=== PATIENT | female | born 1970 | race Caucasian/White ===

== ENCOUNTER 2020-04-05 15:07 | Outpatient (CLI) | payer BC, SELFPAY ==
--- NOTE | ~2020-04-05 | MM_ITS ---
EXAMINATION: MM screening [facility] BI w earl HISTORY: Screening mammogram TECHNIQUE: Craniocaudal and mediolateral oblique 3-D tomosynthesis images were obtained and synthetic 2-D images were generated. CAD analysis was submitted and interpreted. COMPARISON: Comparison to multiple prior studies sequentially, with oldest reviewed study dated 05/15. BREAST PARENCHYMAL COMPOSITION: There are scattered areas of fibroglandular density. FINDINGS: There is no evidence of suspicious mass, calcification, or architectural distortion to sugg est malignancy in either breast. There has been no suspicious interval change. IMPRESSION: 1. No mammographic evidence of malignancy. 2. Recommend routine screening mammography in one year. BI-RADS Category 1: Negative Reviewed, dictated and finalized at location A.
== END 2020-04-05 15:08 | disposition home or self-care (01) ==
LOC: ANHIMG 15:12
PROVIDERS: PCP Family Medicine; Visit Provider Obstetrics & Gynecology
DX: Z12.31 Encounter for screening mammogram for malignant neoplasm of breast (principal)
CPT/HCPCS: 77063; 77067

== ENCOUNTER → 2020-06-22 15:44 | Outpatient (REF) | payer BC, SELFPAY | LOC: ANHLAB 15:44 | PROVIDERS: PCP Family Medicine; Visit Provider Nurse Practitioner | DX: L72.11 Pilar cyst (principal) | CPT/HCPCS: 88304 ==

== ENCOUNTER 2021-05-03 17:37 | Outpatient (CLI) | payer BC, SELFPAY ==
--- NOTE | ~2021-05-03 | MM_ITS ---
EXAMINATION: MM screening [facility] BI w earl HISTORY: Screening mammogram TECHNIQUE: Craniocaudal and mediolateral oblique 3-D tomosynthesis images were obtained and synthetic 2-D images were generated. CAD analysis was submitted and interpreted. COMPARISON: 04/05/2020, 06/29/2018, 09/05/2016 bilateral digital screening mammogram examinations BREAST PARENCHYMAL COMPOSITION: There are scattered areas of fibroglandular density. FINDINGS: Stable fibroglandular asymmetry. Occasional punctate benign calcifications. There is no robbie dence of suspicious mass, calcification, or architectural distortion to suggest malignancy in either breast. There has been no suspicious interval change. IMPRESSION: 1. No mammographic evidence of malignancy. 2. Recommend routine screening mammography in one year. BI-RADS Category 2: Benign finding(s). Reviewed, dictated and finalized at location A.
== END 2021-05-03 17:38 | disposition home or self-care (01) ==
PROVIDERS: PCP Family Medicine; Visit Provider Obstetrics & Gynecology
DX: Z12.31 Encounter for screening mammogram for malignant neoplasm of breast (principal)
CPT/HCPCS: 77063; 77067

== ENCOUNTER → 2021-06-19 16:51 | Outpatient (REF) | payer BC, SELFPAY | LOC: ANHLAB 16:51 | PROVIDERS: PCP Family Medicine; Visit Provider Nurse Practitioner | DX: D49.2 Neoplasm of unspecified behavior of bone, soft tissue, and skin (principal) | CPT/HCPCS: 88305 ==

== ENCOUNTER 2021-10-02 10:27 | Outpatient (CLI) | payer BC, SELFPAY ==
[2021-10-02 10:44] LABS: Basophils Absolute Auto 0.1 K/mm3 (0.0-0.1); Basophils Percent Auto 1.1 % (0.2-1.2); Eosinophils Absolute Auto 0.2 K/mm3 (0-0.3); Eosinophils Percent Auto 2.2 % (0-4.4); Hematocrit 44.9 % (37.0-47.0); Hemoglobin 14.4 g/dL (12.0-15.0); Immature Granulocyte Absolute 0.02 K/mm3 (0.00-0.031); Immature Granulocyte Percent A 0.2 % (0-0.5); Lymphocytes Absolute Auto 2.29 K/mm3 (0.9-3.2); Lymphocytes Percent Auto 26.8 % (18.3-44.2); Mean Corpuscular HGB Conc 32.1 g/dl (32-36); Mean Corpuscular Hemoglobin 30.6 pg (26-34); Mean Corpuscular Volume 95.5 fl (80-100); Mean Platelet Volume 9.8 fl (7.4-10.4); Monocytes Absolute Auto 0.8 K/mm3 (0.1-0.6); Monocytes Percent Auto 8.8 % (2.6-8.5); Neutrophils Absolute Auto 5.2 K/mm3 (1.3-6.7); Neutrophils Percent Auto 60.9 % (45.5-73.1); Platelet Count Result 255 k/mm3 (150-375); Red Cell Distribution Width 12.7 % (11.5-14.5); White Blood Count 8.5 K/mm3 (4.5-10.0)
[2021-10-02 10:48] LABS: Add Urine Microscopic? NO; Appearance Urine Clear (Clear); Bilirubin Urine Negative (Negative); Blood Urine Negative (Negative); Color Urine Yellow (Yellow); Glucose Urine UA Negative (Negative); Ketones Urine Negative (Negative); Leukocyte Esterase Ur Negative LEU/UL (NEGATIVE); Nitrate Urine Negative (Negative); Protein Urine Negative (Negative); Specific Grav Ur 1.014 (1.001-1.035); Urobilinogen Urine Negative mg/dL (<2.0)
[2021-10-02 11:01] LABS: Alanine Aminotransferase 24 U/L (4-35); Alkaline Phosphatase 84 U/L (38-126); Amylase 67 U/L (30-110); Anion Gap 7 mmol/L (8-16); Aspartate Amino Transferase 38 U/L (14-36); Bilirubin,Total 0.7 mg/dL (0.2-1.3); Blood Urea Nitrogen 7 mg/dL (7-17); Calcium 8.8 mg/dL (8.4-10.2); Carbon Dioxide 25 mmol/L (22-30); Chloride 102 mmol/L (98-107); Estimated Glomerular Filt Rate > 60; Glucose 100 mg/dL (65-110); Lipase 84 U/L (23-300); Potassium 4.4 mmol/L (3.4-5.0); Sodium 134 mmol/L (137-145)
== END 2021-10-02 10:28 | disposition home or self-care (01) ==
PROVIDERS: PCP Family Medicine; Visit Provider Physician Assistant
DX: R10.9 Unspecified abdominal pain (principal); I10 Essential (primary) hypertension; K21.9 Gastro-esophageal reflux disease without esophagitis
CPT/HCPCS: 36415; 80053; 81003; 82150; 83690; 85025; 87086

== ENCOUNTER 2022-05-09 16:17 | Outpatient (CLI) | payer BC, SELFPAY ==
--- NOTE | ~2022-05-09 | US_ITS ---
EXAMINATION: US thyroid DATE: 05/09/2022 16:58 INDICATION: Nontoxic goiter TECHNIQUE: Multiple ultrasound images of the thyroid were obtained. COMPARISON: None. FINDINGS: The right thyroid lobe measures 5.5 x 1.5 x 1.4 cm. The left thyroid lobe measures 5.6 x 1.4 x 1.9 c m. 4.1 cm wider than tall solid hypoechoic nodule without echogenic foci and with smooth margins at the inferior left thyroid (TI-RADS 4, moderately suspicious , FNA if >=1.5 cm, annual followup is >=1 cm). 3.1 cm solid heterogeneous isoechoic nodule with smooth margins and with internal coarse shadow ing calcifications at the junction of the left thyroid lobe and isthmus, also TI RADS 4. There are m ultiple additional scattered subcentimeter hypoechoic and anechoic nodules in both the left and right thyroid lobes. IMPRESSION: 1. Multinodular goiter including a 3.1 cm TI RADS 4 nodule at the junction of the left thyroid lobe a nd isthmus and a second 4.1 cm TI RADS 4 nodule at the inferior left thyroid lobe nodules meeting cri teria for biopsy. Recommend ultrasound-guided biopsy of at least the larger nodule at the inferior le ft thyroid lobe versus biopsy of both of the larger nodules. Reviewed, dictated and finalized at location A. IMPRESSION: 1. Multinodular goiter including a 3.1 cm TI RADS 4 nodule at the junction of t he left thyroid lobe and isthmus and a second 4.1 cm TI RADS 4 nodule at the in ferior left thyroid lobe nodules meeting criteria for biopsy. Recommend ultraso und-guided biopsy of at least the larger nodule at the inferior left thyroid lo be versus biopsy of both of the larger nodules.
== END 2022-05-09 16:18 | disposition home or self-care (01) ==
PROVIDERS: PCP Family Medicine; Visit Provider Obstetrics & Gynecology
DX: E04.2 Nontoxic multinodular goiter (principal)
CPT/HCPCS: 76536

== ENCOUNTER 2022-06-04 10:19 | Outpatient (CLI) | payer BC, SELFPAY ==
--- NOTE | 2022-06-04 10:26 | EST_ITS ---
Patient Info Name: Maral Bernabe Age: 51 years : 1970 Gender: Female Ht: 63 in Wt: 180 lbs BSA: 1.94 m2 Exam Date: 06/04/2022 10:46 AM Exam Location: [facility] Stress Patient Status: Outpatient Admit Date: 06/04/2022 Staff Ordering Physician: Martha Chacon PA-C Attending Provider: Martha Chacon PA-C Exercise Technologist: Carmina Key RDCS Exercise Physician: Aj Hale DO Exam Type: CA stress test treadmill Study Info Indications R07.9 - Chest pain, unspecified A treadmill exercise stress test was performed. Summary 1. 1. Negative [place] exercise stress test for ischemic ST changes by ECG criteria. 2. 2. Good functional capacity, achieving 10 METs of workload. 3. 3. Appropriate HR response to exercise. 4. 4. Appropriate HR recovery at 1 minute post exercise. 5. 5. No imaging with stress testing. 6. 6. Patient informed of the above results. Protocol: [place] Stress ECG Details Stage: REST Duration (min): 1 min : 2 sec Speed (mph): 0.0 Grade (%): 0 HR (bpm): 62 SBP (mmHg): 118 DBP (mmHg): 66 METS: --- Stage: REST Duration (min): 6 min : 9 sec Speed (mph): 0.0 Grade (%): 0 HR (bpm): 58 SBP (mmHg): 118 DBP (mmHg): 66 METS: --- Stage: STAGE 1 Duration (min): 1 min : 0 sec Speed (mph): 1.7 Grade (%): 10 HR (bpm): 93 SBP (mmHg): 118 DBP (mmHg): 66 METS: --- Stage: STAGE 1 Duration (min): 2 min : 0 sec Speed (mph): 1.7 Grade (%): 10 HR (bpm): 102 SBP (mmHg): 118 DBP (mmHg): 66 METS: --- Stage: STAGE 1 Duration (min): 3 min : 0 sec Speed (mph): 1.7 Grade (%): 10 HR (bpm): 101 SBP (mmHg): 140 DBP (mmHg): 54 METS: --- Stage: STAGE 2 Duration (min): 1 min : 0 sec Speed (mph): 2.5 Grade (%): 12 HR (bpm): 109 SBP (mmHg): 140 DBP (mmHg): 54 METS: --- Stage: STAGE 2 Duration (min): 2 min : 0 sec Speed (mph): 2.5 Grade (%): 12 HR (bpm): 118 SBP (mmHg): 148 DBP (mmHg): 52 METS: --- Stage: STAGE 2 Duration (min): 3 min : 0 sec Speed (mph): 2.5 Grade (%): 12 HR (bpm): 120 SBP (mmHg): 148 DBP (mmHg): 52 METS: --- Stage: STAGE 3 Duration (min): 1 min : 0 sec Speed (mph): 3.4 Grade (%): 14 HR (bpm): 134 SBP (mmHg): 142 DBP (mmHg): 52 METS: --- Stage: STAGE 3 Duration (min): 2 min : 0 sec Speed (mph): 3.4 Grade (%): 14 HR (bpm): 146 SBP (mmHg): 142 DBP (mmHg): 52 METS: --- Stage: STAGE 3 Duration (min): 3 min : 0 sec Speed (mph): 3.4 Grade (%): 14 HR (bpm): 151 SBP (mmHg): 175 DBP (mmHg): 64 METS: --- Stage: RECOVERY Duration (min): 0 min : 59 sec Speed (mph): 0.0 Grade (%): 0 HR (bpm): 124 SBP (mmHg): 175 DBP (mmHg): 64 METS: --- Stage: RECOVERY Duration (min): 1 min : 59 sec Speed (mph)
== END 2022-06-04 10:20 | disposition home or self-care (01) ==
PROVIDERS: PCP Family Medicine; Visit Provider Physician Assistant
DX: R07.89 Other chest pain (principal)
CPT/HCPCS: 93017

== ENCOUNTER 2022-06-12 09:01 | Outpatient (CLI) | payer BC, SELFPAY ==
--- NOTE | ~2022-06-12 | US_ITS ---
EXAMINATION: US FNA w image guidance DATE: 06/12/2022 10:15 INDICATION: Thyroid nodule. TECHNIQUE: The procedure and its benefits and risks were discussed with the patient. Risks specifically discusse d included bleeding. The patient verbalized understanding of the risks and agreed to proceed. The nec k was prepped and draped in the usual sterile manner. 1% lidocaine was used for local anesthesia. 6 passes were made with a 25G needle into the lesion under ultrasound guidance. There were no immedia te complications. FINDINGS: Grayscale ultrasound images demonstrate needles advanced into a 3.1 cm nodule in thyroid isthmus for biopsy. This nodule was previously described as 2 nodules. IMPRESSION: 1. Ultrasound-guided fine needle aspiration of a thyroid nodule. Reviewed, dictated and finalized at location A.
== END 2022-06-12 09:02 | disposition home or self-care (01) ==
LOC: ANHIMG 09:07
PROVIDERS: PCP Family Medicine; Visit Provider Otolaryngology
DX: E04.1 Nontoxic single thyroid nodule (principal)
CPT/HCPCS: 10005; 88173; 88305

== ENCOUNTER 2022-06-26 14:05 | Outpatient (CLI) | payer BC, SELFPAY ==
--- NOTE | ~2022-06-26 | MM_ITS ---
EXAMINATION: MM screening [facility] BI w earl HISTORY: Screening mammogram TECHNIQUE: Craniocaudal and mediolateral oblique 3-D tomosynthesis images were obtained and synthetic 2-D images were generated. CAD analysis was submitted and interpreted. COMPARISON: 05/03/2021, 04/05/2020 BREAST PARENCHYMAL COMPOSITION: There are scattered areas of fibroglandular density. FINDINGS: There is no suspicious mass, calcification, or architectural distortion to suggest malignan cy in either breast. There has been no suspicious interval change. IMPRESSION: 1. No mammographic evidence of malignancy. 2. Recommend routine screening mammography in one year. BI-RADS Category 1: Negative Reviewed, dictated and finalized at location A.
== END 2022-06-26 14:06 | disposition home or self-care (01) ==
PROVIDERS: PCP Family Medicine; Visit Provider Obstetrics & Gynecology
DX: Z12.31 Encounter for screening mammogram for malignant neoplasm of breast (principal)
CPT/HCPCS: 77063; 77067

== ENCOUNTER → 2022-11-19 07:56 | Outpatient (CLI) | payer BC, SELFPAY ==
--- NOTE | ~2022-11-19 | XR_ITS ---
XR shoulder RT min 2V DATE: 11/19/2022 08:08 INDICATION: Right shoulder pain TECHNIQUE: 4 views COMPARISON: None FINDINGS: Normal alignment at the acromioclavicular and glenohumeral joints. No fracture, dislocation , periosteal reaction or bone destruction or abnormal soft tissue calcification. IMPRESSION: Negative Reviewed, dictated and finalized at location A. [employer] IMPRESSION: Negative
== END ==
PROVIDERS: PCP Family Medicine; Visit Provider Physician Assistant
DX: M25.511 Pain in right shoulder (principal)
CPT/HCPCS: 73030

== ENCOUNTER 2023-01-23 09:30 | Outpatient (CLI) | payer BC, SELFPAY ==
--- NOTE | ~2023-01-23 | MR_ITS ---
MRI of the right shoulder Technique: Axial proton-density fat-sat images, coronal proton density fat-sat and T2 fat-sat images, and sagittal T1-weighted and T2 fat-sat images were acquired. Clinical History: Pain Findings: No significant degenerative change at the AC joint. Coracoclavicular, coracoacromial, and c oracohumeral ligaments are intact. There is mild infiltration of subcoracoid fat. Supraspinatus and infraspinatus tendons are intact, without partial or full-thickness tear. Subscapul victor hugo tendon is intact. There is minimal rotator cuff tendinosis. Tendon of the long head of the bicep s is intact. No labral tear identified. There is thickening and increased signal of the inferior glenohumeral ligament. No degenerative gonzalez e of the glenohumeral joint. No fluid distention of the subacromial/subdeltoid bursa. No muscle atrop hy or edema. Impression: Findings consistent with adhesive capsulitis. Minimal rotator cuff tendinosis. Reviewed, dictated and finalized at location . Impression: Findings consistent with adhesive capsulitis. Minimal rotator cuff tendinosis.
== END 2023-01-23 09:31 | disposition home or self-care (01) ==
PROVIDERS: PCP Family Medicine; Visit Provider Physician Assistant
DX: M25.511 Pain in right shoulder (principal)
CPT/HCPCS: 73221

== ENCOUNTER → 2023-06-02 08:29 | Outpatient (CLI) | payer BC, SELFPAY ==
--- NOTE | ~2023-06-02 | US_ITS ---
EXAMINATION: US thyroid DATE: 06/02/2023 08:44 INDICATION: Nontoxic multinodular goiter. TECHNIQUE: Multiple ultrasound images of the thyroid were obtained. COMPARISON: Ultrasound 05/09/2022, 06/12/2022 FINDINGS: The right thyroid lobe measures 5.3 x 1.9 x 1.6 cm. The left thyroid lobe measures 6.0 x 1.7 x 1.9 c m. There are multiple subcentimeter nodules in the thyroid. In the thyroid isthmus, there is a 3.4 c m solid, isoechoic wider than tall nodule with ill-defined margin without echogenic foci (TI-RADS TR3 ), stable from 06/12/22 when biopsy was benign. In the left thyroid lobe, there is a 9 mm, solid, hypoe choic, wider than tall nodule with ill-defined margin without echogenic foci (TI-RADS TR4). IMPRESSION: 1. Multinodular goiter, likely not clinically significant. No follow-up is needed. Reviewed, dictated and finalized at location E. IMPRESSION: 1. Multinodular goiter, likely not clinically significant. No follow-up is need ed.
== END ==
PROVIDERS: PCP Otolaryngology; Visit Provider Otolaryngology
DX: E04.2 Nontoxic multinodular goiter (principal)
CPT/HCPCS: 76536

== ENCOUNTER 2023-06-24 02:58 | Day surgery (SDC) | payer BC, SELFPAY ==
[2023-06-10 14:28] VITALS: BMI 32.0
[2023-06-24 09:18] VITALS: BP 138/72; PULSE 64; RESP 18; TEMP 36.2; O2SAT 100
[2023-06-24] MEDS: LACTATED RINGERS 1,000 ML 150 ML IV CONT (09:27)
--- NOTE | 2023-06-24 09:41 | WPDANESEPPF ---
Anes - Initial Pre Proc Eval Procedure: Operation Date: 06/24/23 10:30 Proposed Procedures p Screening Colonoscopy - Zhang Kc MD Date/Time: 06/24/23 09:41 Surgeon: Zhang Kc MD Pre Op Diagnosis: neoplasm screening Patient Data Age: 52 Gender: F Height: 1.6 m Weight: 83.2 kg Last Vital Signs Temp 97.2 F L 06/24/23 09:18 Pulse 64 06/24/23 09:18 Resp 18 06/24/23 09:18 BP 138/72 06/24/23 09:18 Pulse Ox 100 06/24/23 09:18 O2 Del Method Room Air 06/24/23 09:18 Allergies Allergy/AdvReac Type Severity Reaction Status Date / Time No Known Allergies Allergy Verified 06/24/23 09:16 Home Medications Medication Instructions Recorded Confirmed Type [id number]-[id number] 45 mg-folic cap PO 11/01/19 05/20/23 History acid 800 mcg-vit K 120 mcg capsule (Bariatric Multivitamins) calcium citrate 600 mg PO BID 06/13/20 06/10/23 History lactobacillus combination no.8 3 3,000 mmu cells PO DAILY 06/13/20 06/10/23 History billion cell capsule (Adult Probiotic) amlodipine 5 mg tablet 5 mg PO DAILY #90 tabs 05/01/22 06/10/23 Rx lisinopril 5 mg tablet 5 mg PO DAILY #90 tabs 05/01/22 06/10/23 Rx trazodone 100 mg tablet 100 mg PO QHS #90 tabs 05/01/22 06/10/23 Rx citalopram 40 mg tablet See Rx Instructions .Route 07/02/22 06/10/23 Rx .COMPLEX #90 tabs doxycycline hyclate 50 mg capsule 50 mg PO DAILY 05/20/23 06/10/23 History Estroven 1 tablet PO DAILY 06/10/23 06/10/23 History Patient hx anesthesia problems: none Family hx anesthesia problems: none Results Review: All pre-operative results and documents have been reviewed as part of the pre-operative evaluation. [facility], [facility] Past Medical History Medical History Adhesive capsulitis of right shoulder Anxiety Benign mole Depression Elective Enlarged thyroid gland Essential hypertension GERD (gastroesophageal reflux disease) Headache High cholesterol Libido, decreased Menopausal and female climacteric states Obesity (BMI 30-39.9) Pilar cyst PVCs (premature ventricular contractions) Right rotator cuff tendinitis Right shoulder pain Scarring Skin cancer screening Skin neoplasm Subcutaneous mass Surgical History Surgical History History of bariatric surgery gastric sleeve 2015 History of bilateral tubal ligation History of cholecystectomy History of endometrial ablation History of hernia surgery Hx of LASIK S/P gastric bypass Family History Family History Father Heart disease Hypertension Acute myocardial infarction Mother Lung cancer Sibling Diabetes mellitus Hypertension Other High cholesterol Social History Social History Social History: Smoking packs per day: 2 Smoking cigarettes per day: 40.0 Years smoked: 20 Smoking pack-years: 40.00 Smoking status: Former smoker Second hand tobacco smoke exposure: No Smoking end date: 10/06/06 Alcohol intake: never Substance use: never Substance use type: does not use Lack of Transportation: No Lack of Food: Never True Current Housing: I Have Housing Concerned About Future Housing: No Difficulty Paying Gas/Electric Bills: No Difficulty Paying for Meds: No Currently Unemployed: No Education: Associate Degree Difficulty w/ Childcare or Family Care: No Living arrangements: with family Occupation/Education: occupation Gender identity (if verbalized by the patient): Female Sexual Orientation (if Verbalized by the Patient): Straight or Heterosexual Spiritual care concerns: No Anes - Eval Final PreProcedure Day of Procedure 06/24/23 09:41 Patient weight: normal Heart: regular rate and rhythm Lungs: clear to auscultation Airway: Mallam
--- NOTE | 2023-06-24 10:07 | PM.HPGS ---
History of Present Illness History of Present Illness Consent: Risks, benefits, and alternatives have been discussed and questions answered. Patient agrees to proceed with procedure. Chief complaint: neoplasm screening Narrative: Maral Bernabe is a 52 year old female here for first screening colonoscopy Review of Systems Constitutional: Constitutional: Denies headache(s) and Denies weakness Eyes: Eyes: Denies blurry vision ENT: Reports Normal hearing present, Denies headache(s) and Denies neck pain Cardiovascular: Cardiovascular: Denies chest pain and Denies dyspnea Respiratory: Respiratory: Denies dyspnea Gastrointestinal: Gastrointestinal: Reports no additional gastrointestinal complaints Genitourinary: Genitourinary: Denies dysuria Musculoskeletal: Musculoskeletal: Denies neck pain Integumentary/Breasts: Skin/Breast: Denies dry skin Neurologic: Reports Normal hearing present, Denies headache(s) and Denies weakness Psychiatric: Psychiatric: Denies anxiety Endocrine: Endocrine: Denies change in body appearance Hematologic/Lymphatic: Hematologic/Lymphatic: Denies easy bleeding Allergic/Immunologic: Allergic/Immunologic: Denies urticaria PMF Past Medical History Medical History (Updated 06/24/23 @ 10:08 by Zhang Kc MD) Adhesive capsulitis of right shoulder Anxiety Benign mole Colon cancer screening Depression Elective Enlarged thyroid gland Essential hypertension GERD (gastroesophageal reflux disease) Headache High cholesterol Libido, decreased Menopausal and female climacteric states Obesity (BMI 30-39.9) Pilar cyst PVCs (premature ventricular contractions) Right rotator cuff tendinitis Right shoulder pain Scarring Skin cancer screening Skin neoplasm Subcutaneous mass Surgical History Surgical History History of bariatric surgery gastric sleeve 2014 History of bilateral tubal ligation History of cholecystectomy History of endometrial ablation History of hernia surgery Hx of LASIK S/P gastric bypass Family History Family History Father Heart disease Hypertension Acute myocardial infarction Mother Lung cancer Sibling Diabetes mellitus Hypertension Other High cholesterol Social History Social History Social History: Smoking packs per day: 2 Smoking cigarettes per day: 40.0 Years smoked: 20 Smoking pack-years: 40.00 Smoking status: Former smoker Second hand tobacco smoke exposure: No Smoking end date: 10/06/06 Alcohol intake: never Substance use: never Substance use type: does not use Lack of Transportation: No Lack of Food: Never True Current Housing: I Have Housing Concerned About Future Housing: No Difficulty Paying Gas/Electric Bills: No Difficulty Paying for Meds: No Currently Unemployed: No Education: Associate Degree Difficulty w/ Childcare or Family Care: No Living arrangements: with family Occupation/Education: occupation Gender identity (if verbalized by the patient): Female Sexual Orientation (if Verbalized by the Patient): Straight or Heterosexual Spiritual care concerns: No Meds Home Medications and Allergies Home Medications Medication Instructions Recorded Confirmed Type tdpszcnr-[id number]-[id number] 45 mg-folic cap PO 11/01/19 05/20/23 History acid 800 mcg-vit K 120 mcg capsule (Bariatric Multivitamins) calcium citrate 600 mg PO BID 06/13/20 06/10/23 History lactobacillus combination no.8 3 3,000 mmu cells PO DAILY 06/13/20 06/10/23 History billion cell capsule (Adult Probiotic) amlodipine 5 mg tablet 5 mg PO DAILY #90 tabs 05/01/22 06/10/23 Rx lisinopril 5 mg tablet 5 mg PO DAILY #90 tabs 05/01/22 06/10/23 Rx trazodone 100 mg tablet 100 mg PO QHS #90 tabs 05/01/22 06/10/23 Rx c
[2023-06-24 10:32] VITALS: BP 112/66; PULSE 68; RESP 21; O2SAT 100
[2023-06-24 10:42] VITALS: BP 120/73; PULSE 66; RESP 18; O2SAT 100
[2023-06-24 10:52] VITALS: BP 136/80; PULSE 60; RESP 15; O2SAT 100
== END 2023-06-24 11:03 | disposition home or self-care (01) ==
PROVIDERS: PCP Family Medicine; Visit Provider Internal Medicine Gastroenterology
PROC: 0DJD8ZZ Inspection of Lower Intestinal Tract, Via Natural or Artificial Opening Endoscopic (ICD-10-PCS; CPT 45378; principal; 2023-06-24 10:30)
DX: Z12.11 Encounter for screening for malignant neoplasm of colon (principal); K64.8 Other hemorrhoids; I10 Essential (primary) hypertension; E78.00 Pure hypercholesterolemia, unspecified; F41.9 Anxiety disorder, unspecified; F32.A Depression, unspecified; Z98.84 Bariatric surgery status; Z87.891 Personal history of nicotine dependence
CPT/HCPCS: 45378; J2704; J7120

== ENCOUNTER 2023-07-05 09:59 | Outpatient (CLI) | payer BC, SELFPAY ==
--- NOTE | ~2023-07-05 | CT_ITS ---
EXAMINATION:CT lung screening DATE: 07/05/2023 10:17 INDICATION: Tobacco use. Smoker who quit 13 years ago with 30 pack year history. TECHNIQUE: Computed tomography (CT) of the chest was performed without intravenous contrast. Automate d exposure control and iterative reconstruction technique were employed. The dose-length product (DLP ) was 76.91 mGy-cm. COMPARISON: None. FINDINGS: There is mild atelectasis bilaterally. No pleural effusion. There is a multinodular goiter extending into the superior mediastinum. The heart size is normal. No pericardial effusion. There are surgical changes of the stomach. There is a small sliding hiatal hernia. There is mild thoracic spon dylosis. IMPRESSION: 1. Lung-RADS category 1: Negative. Continue annual screening with noncontrast low-dose chest CT in 12 months. Reviewed, dictated and finalized at location E. IMPRESSION: 1. Lung-RADS category 1: Negative. Continue annual screening with noncontrast l ow-dose chest CT in 12 months.
== END 2023-07-05 10:00 | disposition home or self-care (01) ==
PROVIDERS: PCP Family Medicine; Visit Provider Physician Assistant
DX: Z12.2 Encounter for screening for malignant neoplasm of respiratory organs (principal); Z87.891 Personal history of nicotine dependence
CPT/HCPCS: 71271

== ENCOUNTER → 2023-09-02 15:55 | Outpatient (CLI) | payer BC, SELFPAY ==
--- NOTE | ~2023-09-02 | MM_ITS ---
EXAMINATION: MM screening [facility] BI w earl HISTORY: Screening mammogram TECHNIQUE: Craniocaudal and mediolateral oblique 3-D tomosynthesis images were obtained and synthetic 2-D images were generated. CAD analysis was submitted and interpreted. COMPARISON: 06/26/2022, 05/03/2021, 04/05/2020 bilateral screening mammogram examinations BREAST PARENCHYMAL COMPOSITION: There are scattered areas of fibroglandular density. FINDINGS: Stable fibroglandular asymmetry since 05/03/2021. There is no evidence of suspicious mass, c alcification, or architectural distortion to suggest malignancy in either breast. There has been no s uspicious interval change. IMPRESSION: 1. No mammographic evidence of malignancy. 2. Recommend routine screening mammography in one year. BI-RADS Category 2: Benign finding(s). Reviewed, dictated and finalized at location A. INE QUILT STUFFER
== END ==
PROVIDERS: PCP Family Medicine; Visit Provider Obstetrics & Gynecology
DX: Z12.31 Encounter for screening mammogram for malignant neoplasm of breast (principal)
CPT/HCPCS: 77063; 77067

== ENCOUNTER 2024-08-21 11:11 | Outpatient (CLI) | payer BC, SELFPAY ==
--- NOTE | ~2024-08-21 | US_ITS ---
EXAMINATION: US pelvic complete w TV DATE: 08/21/2024 11:37 INDICATION: R10.2 - Pelvic and perineal pain TECHNIQUE: Multiple transabdominal and endovaginal sonographic images of the pelvis were obtained. COMPARISON: None. FINDINGS: Uterus: 5.0 x 3.1 x 3.6 cm. Scattered uterine calcifications and nabothian cysts. Endometrial complex measures 3 mm. Right Ovary: Right ovary not visualized. No adnexal mass Left Ovary: 1.5 x 1.0 x 1.7 cm. Vascular flow is present. There is no free fluid in the pelvis. IMPRESSION: Right ovary not visualized. Otherwise unremarkable pelvic sonogram findings. Reviewed, dictated and finalized at location K. 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
== END 2024-08-21 11:12 | disposition home or self-care (01) ==
LOC: MICIMG 11:11
PROVIDERS: PCP Obstetrics & Gynecology; Visit Provider Obstetrics & Gynecology
DX: R10.2 Pelvic and perineal pain (principal)
CPT/HCPCS: 76830; 76856

== ENCOUNTER 2024-12-20 10:59 | Outpatient (CLI) | payer BC, SELFPAY ==
--- NOTE | ~2024-12-20 | DEXA_ITS ---
Bone Density Report Name: BELA BREWER Age: 54 Sex: Female Ethnicity: White Date of : 1970 Indication: postmenopausal; screening for osteoporosis; height loss; Referring Provider: ALVARO RAMOS Study: Bone densitometry was performed. Exam Date: December 20, 2024 Accession number: [id number] Bone Density: Region BMD T-score Z-score Classification AP Spine(L1-L4) 1.014 -0.3 0.8 Normal Femoral Neck (Left) 0.590 -2.3 -1.3 Osteopenia Total Hip (Left) 0.780 -1.3 -0.6 Osteopenia Femoral Neck (Right) 0.634 -1.9 -0.9 Osteopenia Total Hip (Right) 0.760 -1.5 -0.8 Osteopenia Total Hip Mean 0.770 -1.4 -0.7 Osteopenia World Health Organization criteria for BMD impression classify patients as: Normal (T-score at or above -1.0), Osteopenia (T-score between -1.0 and -2.5), or Osteoporosis (T-score at or below -2.5). 10-year Fracture Risk(1): Major Osteoporotic Fracture 8.4% Hip Fracture 1.2% Reported Risk Factors: [place] (), Neck BMD=0.590, BMI=28.9 (1) FRAX(R) Version 3.08. Fracture probability calculated for an untreated patient. Fracture probability may be lower if the patient has received treatment. Clinical Information Provided by Patient: Has used the following medications: HRT (i.e. estrogen/hormone therapy), Vitamin D, Calcium Patient maximum height was 63.0 Menopause Age: 53 Does not regularly consume dairy products Onset of menses at age 9 Number of children 0 Impression: The patient has low bone mass, based on the Left Femoral Neck T-score. The patient has an estimated ten-year risk of hip fracture of 1.2% and an estimated ten-year risk of major fracture of 8.4%, based on the WHO FRAX algorithm. Discussion: BONE DENSITY IS LOW AT ONE OR MORE SKELETAL SITES. This patient's lowest T-score is low at one or more skeletal sites. It meets the World Health Organization's (WHO) criteria for ?low bone mass? (T-score between -1.0 and -2.5). The patient's 10-year risk of fracture as calculated by FRAX is less than the threshold where pharmacological therapy is recommended by the National Osteoporosis Foundation (NOF). However, all treatment decisions require clinical judgment and consideration of individual patient factors, including patient preferences, comorbidities, previous drug use, risk factors not captured in the FRAX model (e.g., frailty, falls, vitamin D deficiency, increased bone turnover, interval significant decline in bone density) and possible under or overestimation of fracture risk by FRAX. The patient should follow a healthful lifestyle (good nutrition with adequate calcium and vitamin D, and appropriate weight-bearing exercise). Follow-Up: Consider repeating this study in 2 to 3 years to reassess this patient's status, or sooner if there is some new clinical indication. Reported by: NANCY on 12/20/2024 11:36:00 AM. Reviewed, dictated and finalized at location A.
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
--- OUTSIDE RECORDS SUMMARY | 2024-12-20 13:40 | XMS_ITS ---
Author Organization [facility] [employer] Address [address] [facility] [address] [place] [address] Care Team Providers Care Passenger Attendant Name Role Phone Dawson Medel MD Primary Care Provider UnavailLizeth [place] Unavailable [phone] Allergies No Known Allergies REASON FOR VISIT follow up Medications Medication SIG (Take, Route, Frequency, Duration) Notes Start Date End Date Status Wegovy 0.5 MG/0.5ML 0.5 mL Subcutaneous Active Sertraline HCl 50 MG 1 tablet Oral Once a day for 90 days 11/02/2024 Active amLODIPine Besylate 5 MG Oral for 90 Days Active Omeprazole 20 MG Oral for 30 Days Active Lisinopril 5 MG Oral for 90 Days Not-Taking Social History Tobacco Use: Social History Observation [...] alcohol in the p ast year? No Encounters Encounter Location Date Provider Diagnosis [employer] [facility] [address] [facility] [address] [facility] [address] [place] [address] 11/02/2024 Lizeth Carlos Severe episode of recurrent major depressive disorder, without psychotic features F33.2 and JULIAN (generalized anxiety disorder) F41.1 Assessments Encounter Date Diagnosis (ICD Code) Assessment Notes Treatment Notes Treatment Clinical Notes Section Notes 11/02/2024 Severe episode of recurrent major depressive [...] with first generation antipsychotics) and more. 11/02/2024 JULIAN (generalized anxiety disorder) (ICD-10 - F41.1) 11/02/2024 Other Stop Abilify due to EPS [...] -Crisis prevention hotline 988. Plan Of Treatment Medication Medication Name Sig Start Date Stop Date Notes Citalopram Hydrobromide 40 MG 1 tablet Oral Once a day Sertraline HCl 50 MG 1 tablet Oral Once a day for 90 days 11/02/2024 ARIPiprazole 10 MG 1 tablet Orally Once a day for 90 days Treatment Notes Assessment Notes Severe episode of recurrent major depressive disorder, without psychotic features Second generation antipsychotics (SGAs) have metabolic syndrome [...] common with first generation antipsychotics) and more. Other Stop Abilify due to EPS Taper off of citalopram- 20mg daily for 4 days, 10mg daily for 4 days then stop Start sertraline- 25mg daily for 4 days then 50mg daily Patient educated on all medications including potential benefits, side effects, risks. Educated on proper dosing schedule and importance of compliance. Cont counseling with Juan Alberto Cordon Appt Details Follow Up: 2 Weeks, Reason: medication follow up Provider Name:Lizeth Carlos, 01/13/2025 03:30:00 PM, [address] [facility] [address] [facility] [address], [place], [address], Progress Notes * DANIELLAЕЛЕНАMARKUSOB:1970 ([age] yo F)Acc No.[id number]:11/02/2024 Patient: BELA JOHN Provider: KULDEEP HUNTHNP :1970 A ge:54 Y S ex:Female Date:11/02/2024 Phone: Address:[address] [place] [address] [facility] Pcp:Dawson Medel MD Subjective: * Chief Complaints: * F ollow up * HPI: P ast Psychiatric Hospitalizations: Previous psychiatric hospitalizations P revious Psychiatric Hospitalization N o. P ast History of Suicidal attempt H ave you ever attempted suicide in the past N o. Social hx: . No biological children. Has one dog. 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 Legal hx: denies Past psychiatric hx- Hx ECT/TMS/esketamine: none Past [facility] admissions/IOP/PHP: none Previous suicide attempts: denies Previous self-harming: denies Family psychiatric hx: none she is aware of Previous medications: Wellbutrin (ineffective), couple of others she did not recal;, abilify (EPS) Supplements: multivitamin, probiotic Trauma/Abuse: denies Substance use hx: denies Nicotine: none Alcohol: none. H istory of Presenting Problem: Anxiety w ith excessive worry, with low energy-- stable on citalopram . D epression R ates depression 3 with 10 being most severe. Denies SI.?. M ood lability n o hx tony . P sychosis n o hx psychosis . S leep disturbance w ith a history of sleep apnea- CPAP . S uicidal ideation d enies?. P sychotherapy A lbert. Here for follow up. Abilify increased last . Reports she noticed last involuntary twitches on the left side of her mouth and involuntary finger tic, contacted office and Abilify was discontinued. Reports depression has been stable, not feeling hopeless or helpless. No suicidal ideation. Anxiety is stable, denies panic attacks. Sleep is fair, getting about 9 hours nightly. Energy level is fair to low. Appetite is fair. D epression Screening: JULIAN-7 (2018 Edition) F eeling nervous, anxious, or on edge?Not at all, N ot being able to stop or control worrying N ot at all, W orrying too much about different things N ot at all, T rouble relaxing N ot at all, B eing so restless that it is hard to sit still N ot at all, B ecoming easily annoyed or irritable N ot at all, F eeling afraid as if something awful might happen N ot at all. C [place]-Suicide Severity Rating Scale: Suicide Risk (CSRS-screener) i n the past one month Have you wished you were or wished you could go to sleep and not wake up? N o, i n the past one month Have you actually had any thoughts of killing yourself? N o, H ave you ever done anything, started to do anything, or prepared to do anything to end your life? N o. D epression screening: PHQ-9 L ittle interest or pleasure in doing things S everal days, F eeling down, depressed, or hopeless N ot at all, T rouble falling or staying asleep, or sleeping too much S everal days, F eeling tired or having little energy M ore than half the days, P oor appetite or overeating N ot at all, F eeling bad about yourself or that you are a failure, or have let yourself or your family down N ot at all, T rouble concentrating on things, such as reading the newspaper or watching television N ot at all,?Moving or speaking so slowly that other people could have noticed; or the opposite, being so fidgety or restless that you have been moving around a lot more than usual N ot at all, T houghts that you would be better off or of hurting yourself in some way N ot at all, T otal Score 4 , I nterpretation M inimal Depression. I ntervention D epression Screening Findings N egative, S uicide Risk Assessment Performed . * ROS: G eneral / Constitutional: Patient denies c hange in appetite, lightheadedness, sleep disturbance, weight gain, weight loss. P atient complains of l ow energy . ? P sychiatric: Patient denies a uditory / visual hallucinations, delusions, nervous breakdown, suicidal thoughts, tony, psychosis. P atient complains of d epressed mood. Magdlaena Jolly [facility] for details. * Medical History: * Surgical History: g astric sleeve 2016gastric bypass 2018galbladder removal 2018 * Hospitalization/Major Diagno stic Procedure: * Family History: F ather: , diagnosed with Heart disease. M other: , hypoglycemia. M aternal Grandmother: , diagnosed with Type 2 diabetes mellitus without complication, unspecified whether detention insulin use. B jie: alive 62 yrs, diagnosed with Type 2 diabetes mellitus without complication, unspecified whether detention insulin use. Relationship with parents not that good; dad was an asshole ; he was emotionally unavailable and could never please him nor was he affectionate. * Social History: T obacco Use: T obacco Control (Standard) T obacco use: F ormer smoker, H ow long has it been since you last smoked? G reater than 10 years. D rug/Alcohol: D rugs H ave you used drugs other than those for medical reasons in the past 12 months??No. A NONA-C (Standard) D id you have a drink containing alcohol in the past year? N o. 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 Safety issues A re there any firearms in the house? N o.?Advance Care Planning A re you your own decision-maker Y es, D o you have Power of Lockstitch Lining Setter for Health or Medical? Y es, D o you have a power of contracts attorney for health? Y es,?Do you have power of contracts attorney for Medical ? Y es, I f yes, then please bring the POA paperwork so that we can upload it. N o. S ocial History: H ousehold M arital Status: M arried, N umber of Adults in household: 2 , N umber of Children in Household: 0 , L evel of Education: F in[employer]. * Medications: T akingWegovy 0.5 MG/0.5ML Solution Auto-injector 0.5 mL Subcutaneous amLODIPine Besylate 5 MG Tablet Oral Omeprazole 20 MG Capsule Delayed Release Oral Citalopram Hydrobromide 40 MG Tablet Oral Taking Wegovy 0.5 MG/0.5ML Solution Auto-injector 0.5 mL Subcutaneous Taking amLODIPine Besylate 5 MG Tablet Oral Taking Omeprazole 20 MG Capsule Delayed Release Oral Taking Citalopram Hydrobromide 40 MG Tablet Oral Not-TakingARIPiprazole 10 MG Tablet 1 tablet Orally Once a day Lisinopril 5 MG Tablet Oral Medication List reviewed and reconciled with the patientNot-Taking ARIPiprazole 10 MG Tablet 1 tablet Orally Once a day Not-Taking Lisinopril 5 MG Tablet Oral Medication List reviewed and reconciled with the patient * Allergies: N .K.D.A.no[Allergies Verified] Objective: * Vitals: * Examination: P sychiatry: Appearance: w ell-groomed. Abnormal body movements: n one. Affect / mood: d epressed. Attention: g ood. Attitude: c ooperative. Homicidal ideation: n one. Suicidal ideation: n one. Degree of awareness of surroundings: w ithin normal limits.? Delusions: n o. Hallucinations: n o. Insight: g ood. Judgement: g ood. Orientation: a wake, alert and oriented x 3. Perceptual disorders: n o perceptual disorder noted. Psychomotor activity: w ithin normal range. Speech / language: n ormal rate, volume, and articulation (RVR), clear and coherent, appropriate pitch/modulation. Thought content: a ppropriate. Thought process: i ntact. Assessment: * Assessment: 1. S evere episode of recurrent major depressive disorder, without psychotic features - F33.2 (Primary) 2 . G AD (generalized anxiety disorder) - F41.1 Plan: * Treatment: 2. G AD (generalized anxiety disorder) Stop Citalopram Hydrobromide Tablet, 40 MG, 1 tablet, Oral, Once a day. 3. O thers Notes: Stop Abilify due to EPS Taper off of citalopram- 20mg daily for 4 days, 10mg daily for 4 days then stop Start sertraline- 25mg daily for 4 days then 50mg daily Patient educated on all medications including potential benefits, side effects, risks. Educated on proper dosing schedule and importance of compliance. Cont counseling with Juan Alberto Clinical Notes: -Assessment and treatment plan reviewed with patient. -Compliance with treatment plan importance discussed. -Discussed the risks/benefits of this medication -Discussed medication side effects. -Contact office if symptoms worsen. -Discussed that it can take up to 6-8 weeks to see full therapeutic effects of psychotropic medications. -Crisis prevention hotline 988. * Procedure Codes: 9 6127 BEHAV ASSMT W/SCORE & DOCD/STAND [id number] VISIT COMPLEXITY INHERENT TO ONGOING CARE RELATED TO A PATIENT'S SINGLE, SERIOUS CONDITION OR A COMPLEX [id number] CLIN DEPRESSION SCREEN DOC * Follow Up: 2 Weeks (Reason: medication follow up) * Billing Information: * Visit Code: 80110 OFFICE OUTPATIENT VISIT 25 MINUTES DETAILED HISTORY AND EXAM/MODERATE MEDICAL DECISION MAKING. * Procedure Codes: 11919 BEHAV ASSMT W/SCORE & DOCD/STAND INSTRUMENT. G2211 VISIT COMPLEXITY INHERENT TO ONGOING CARE RELATED TO A PATIENT'S SINGLE, SERIOUS CONDITION OR A COMPLEX CONDITION. G8431 CLIN DEPRESSION SCREEN DOC. * TIME REPORTER Sign off status: Completed true * Provider: ANDRE HUNT Date: 0 11/02/2024 Generated for Leila yoder/Lenard/Arlen on: 0 12/20/2024 01:39 PM CDT History and Physical Notes * HPI (History of Present Illness) Category Sub-Category Detail Notes Category Not es History of Presenting Problem Anxiety with excessive worry, with l ow energy-- stable on citalopram Here for follow up. Abilify increased last apt. Reports she noticed last involuntary twitches on the left side of her mouth and involuntary finger tic, contacted office and Abilify was discontinued. Reports depression has been stable, not feeling hopeless or helpless. No suicidal ideation. Anxiety is stable, denies panic attacks. Sleep is fair, getting about 9 hours nightly. Energy level is fair to low. Appetite is fair. Depression Rates depression 3/1 0 with 10 being most severe. Denies SI. Suicidal ideation denies Sleep disturbance with a history of sl eep apnea- CPAP Psychosis no hx psychosis Mood lability no hx tony Psychotherapy Juan Alberto Past Psychiatric Hospitalizations Previous psychiatric hospitalizations Previous Psychiatric Hospitalization: No Social hx: . No biological children. Has one dog. 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 Legal hx: denies Past psychiatric hx- Hx ECT/TMS/esketamine: none Past IPBH admissions/IOP/PHP: none Previous suicide attempts: denies Previous self-harming: denies Family psychiatric hx: none she is aware of Previous medications: Wellbutrin (ineffective), couple of others she did not recal;, abilify (EPS) Supplements: multivitamin, probiotic Trauma/Abuse: denies Substance use hx: denies Nicotine: none Alcohol: none Past History of Suicidal attempt Have yo u ever attempted suicide in the past: No Depression screening PHQ-9 Little inte rest or pleasure in doing things: Several days Feeling down, depressed, or hopeless: No t at all Trouble falling or staying asleep, or sl eeping too much: Several days Feeling tired or having little energy: M ore than half the days Poor appetite or overeating: Not at all Feeling bad about yourself o r that you are a failure, or have let yourself or your family down: Not at all Trouble concentrating on thi ngs, such as reading the newspaper or watching television: Not at all Moving or speaking so slowly that other people could have noticed; or the opposite, being so fidgety or restless that you have been moving around a lot more than usual: Not at all Thoughts that you would be b maryanne off or of hurting yourself in some way: Not at all Total Score: 4 Interpretation: Minimal Depression Intervention Depression Screening Findings: N egative Suicide Risk Assessment Performed: ____ Depression Screening JULIAN-7 (2018 Edition) Feelin g nervous, anxious, or on edge: Not at all Not being able to stop or control worryi ng: Not at all Worrying too much about different things : Not at all Trouble relaxing: Not at all Being so restless that it is hard to sit still: Not at all Becoming easily annoyed or irritable: No t at all Feeling afraid as if something awful pranay ht happen: Not at all University-Suicide Severity Rating Scale Suicide Risk (CSRS-screener) in the past one month Have you wished you were or wished you could go to sleep and not wake up?: No in the past one month Have y ou actually had any thoughts of killing yourself?: No Have you ever done anything, started to do anything, or prepared to do anything to end your life?: No Examination Category Sub-Category Detail Notes Category Not es Psychiatry Appearance: well-groomed Attitude: cooperative Psychomotor activity: within normal rang e Abnormal body movements: none Attention: good Degree of awareness of surroundings: wit hin normal limits Orientation: awake, alert and tahira ented x 3 Affect / mood: depressed Speech / language: normal rate, volume, and articulation (RVR), clear and coherent, appropriate pitch/modulation Insight: good Judgement: good Thought process: intact Thought content: appropriate Perceptual disorders: no perceptual diso rder noted Suicidal ideation: none Homicidal ideation: none Delusions: no Hallucinations: no
--- OUTSIDE RECORDS SUMMARY | 2024-12-20 13:40 | XMS_ITS | Referral Summary ---
Author Organization [facility] [employer] Address [address] [place] [address] Care Team Providers Care Special Education Educational Assistant Name Role Phone Unavailable Primary Care Provider Unavailabl e Source Comments [facility],non-owned Affiliates and Associated Physician Practices is amultiple site organization consisting of ambulatory clinics and hospital sitesin [place], [place], [place] and [place]. This disclosure is being madepursuant to the Care Everywhere program and may not contain all information available regarding this patient. Last updated 18.[facility] [employer] Allergies No known active allergies Medications * Be aware that medications may not be up to date on this document. Alwaysverify current medications with the patient. Medication Sig Dispensed Refills Start Date End Date Status citalopram (CELEXA) 20 MG tablet Take 1.5 (one and one-half) tablets by mouth once daily Active Other Bariatric multivitamin iron free Active vitamin D3-cholecalciferol (CHOLECALCIFEROL) 25 MCG (1000 UNITS) tablet Take 1 tablet by mouth once daily 11/23/2019 Active lisinopril (PRINIVIL; ZESTRIL) 10 MG tablet 1 (one) tablet at bedtime 05/18/2020 Active amLODIPine (NORVASC) 5 MG tablet 1 (one) tablet at bedtime 06/27/2020 Active calcium-vitamin D (OS-DAJA 500 + D) 500-200 mg-unit tablet Take 1 (one) tablet by mouth once daily Active omeprazole (PRILOSEC) 40 MG capsule Take 1 (one) capsule by mouth 2 times daily, before breakfast and supper 60 capsule 3 11/01/2021 Active traZODone (DESYREL) 50 MG tablet Take 1 (one) tablet by mouth at bedtime Active Rhubarb (ESTROVEN COMPLETE PO) Active ondansetron, disintegrating, (Zofran ODT) 4 MG tablet Take 1 (one) tablet by mouth every 6 hours as needed for Nausea/Vomiting Allow tablet to dissolve on the tongue 30 tablet 1 08/12/2023 Active omeprazole (PriLOSEC) 20 MG capsule Take 1 capsule by mouth once daily. 30 capsule 3 05/31/2024 Active ARIPiprazole (Abilify) 5 MG tablet Take 1 (one) tablet by mouth once daily Active ondansetron, disintegrating, (Zofran ODT) 4 MG tablet Take 1 (one) tablet by mouth every 6 hours as needed for Nausea/Vomiting Allow tablet to dissolve on the tongue 30 tablet 1 08/18/2024 Active Active Problems Problem Noted Date Diagnosed Date Gastroesophageal reflux disease without esophagi tis 11/22/2019 Type 2 diabetes mellitus without complications 0 11/28/2014 Other general symptoms and signs 11/28/2014 Uncomplicated asthma 11/28/2014 Obstructive sleep apnea 11/28/2014 Dependence on other enabling machines and device s 11/28/2014 Obesity 11/28/2014 Social History Tobacco Use Types Packs/Day Years Used Date Smoking Tobacco: Former Cigarettes Q uit: 2007 Smokeless Tobacco: Never Comments:quit 12 years ago Alcohol Use Standard Drinks/Week Comments No 0 (1 standard drink = 0.6 oz pur e alcohol) Sex and Gender Information Value Date Recorded Sex Assigned at Not on file Gender Identity Not on file Sexual Orientation Not on file Last Filed Vital Signs Vital Sign Reading Time Taken Comments Blood Pressure 120/82 09/15/2024 9:15 AM INSIDE SALES REPRESENTATIVE Pulse 75 09/15/2024 9:15 AM INSIDE SALES REPRESENTATIVE Temperature 36.3 C (97.3 F) 09/15/2024 9:15 AM INSIDE SALES REPRESENTATIVE Respiratory Rate 18 01/24/2022 8:16 AM CDT Oxygen Saturation 96% 09/15/2024 9:15 AM INSIDE SALES REPRESENTATIVE Inhaled Oxygen Concentration - - Weight 78.9 kg (174 lb) 09/15/2024 9:15 AM INSIDE SALES REPRESENTATIVE Height 160 cm (5' 3 ) 09/15/2024 9:15 AM INSIDE SALES REPRESENTATIVE Body Mass Index 30.82 09/15/2024 9:15 AM INSIDE SALES REPRESENTATIVE Functional Status Functional Status Response Date of Assess ment Is person deaf or have serious hearing difficult y? No 11/22/2019 Is person blind or have serious difficulty seein g? No 11/22/2019 Does person have serious dif ficulty walking/climbing stairs? No 11/22/2019 Does person have difficulty dressing/bathing? No 11/22/2019 Does person have difficulty doing errands alone? No 11/22/2019 Cognitive Status Response Date of Assessm ent Does person have difficulty concentrating/remembering/making decisions? No 11/22/2019 Plan of Treatment Not on file Procedures Procedure Name Priority Date/Time Associated Diagnosis Comments COMPREHENSIVE METABOLIC PANEL Routine 10/27/2021 10:10 AM INSIDE SALES REPRESENTATIVE S/P bariatric surgery Vitamin deficiency Mineral deficiency Vitamin D deficiency Intestinal malabsorption, unspecified type (HCC) Class 1 obesity with body mass index (BMI) of 31.0 to 31.9 in adult, unspecified obesity type, unspecified whether serious comorbidity present HEMOGLOBIN A1C Routine 12/01/2014 11:30 AM INSIDE SALES REPRESENTATIVE from Last 3 Months or Most Recently Relevant to Health Maintenance Results * COMPREHENSIVE METABOLIC PANEL (10/27/2021 10:10 AM INSIDE SALES REPRESENTATIVE) Pathologist [facility] Glucose 91 65 - 99 mg/dL [facility] ACCOUNT BILL BUN 11 6 - 24 mg/dL [facility] ACCOUNT BILL Creatinine 0.73 0.57 - 1.00 mg/dL [facility] ACCOUNT BILL eGFR by MDRD 95 >59 mL/min/1. 73 [facility] ACCOUNT BILL eGFR by MDRD 110 >59 mL/min/1. 73 [facility] ACCOUNT BILL Comment: In accordance with recommendations from the NKF-ASN Task force, [facility] is in the process of updating its eGFR calculation to the 2020 CKD-EPI creatinine equation that estimates kidney function without a race variable. BUN/Creatinine Ratio 15 9 - 23 [facility] ACCOUNT BILL Sodium 138 134 - 144 mmol/L [facility] ACCOUNT BILL Potassium 4.6 3.5 - 5.2 mmol/L [facility] ACCOUNT BILL Chloride 102 96 - 106 mmol/L [facility] ACCOUNT BILL CO2 25 20 - 29 mmol/L [facility] ACCOUNT BILL Calcium 8.9 8.7 - 10.2 mg/dL [facility] ACCOUNT BILL Protein Total 6.0 6.0 - 8.5 g/dL [facility] ACCOUNT BILL Albumin 3.9 3.8 - 4.9 g/dL [facility] ACCOUNT BILL Globulin Total 2.1 1.5 - 4.5 g/dL [facility] ACCOUNT BILL Albumin/Globulin Ratio 1.9 1.2 - 2.2 [facility] ACCOUNT BILL Bilirubin Total 0.4 0.0 - 1.2 mg/dL [facility] ACCOUNT BILL Alkaline Phosphatase 87 44 - 121 IU/L [facility] ACCOUNT BILL AST 18 0 - 40 IU/L [facility] ACCOUNT BILL ALT 16 0 - 32 IU/L [facility] ACCOUNT BILL Blood BLOOD SPECIMEN / Unknown 10/27/2021 10:10 AM INSIDE SALES REPRESENTATIVE 10/27/2021 Narrative Resulting Agency Comment Lab Testing performed at: [facility] [address] [facility] [id number] Rosie Miller SHIP CONSTRUCTION TEACHER-SUPERVISOR [employer] - RUSSELL EDGARD ORDERABLES [facility] ACCOUNT BILL [address] [place] [address] * (ABNORMAL) HEMOGLOBIN A1C (12/01/2014 11:30 AM INSIDE SALES REPRESENTATIVE) Hemoglobin A1c 6.3(H) <5.7 % of total Hgb [facility] Comment: According to ADA guidelines, hemoglobin A1c <7.0% represents optimal control in non- diabetic patients. Different metrics may apply to specific patient populations. Standards of Medical Care in Diabetes-2013. Diabetes Care. 2013;36:s11-s66 For the purpose of screening for the presence of diabetes <5.7% Consistent with the absence of diabetes 5.7-6.4% Consistent with increased risk for diabetes (prediabetes) >or=6.5% Consistent with diabetes This assay result is consistent with a higher risk of diabetes. Currently, no consensus exists for use of hemoglobin A1c for diagnosis of diabetes for children. REPORT COMMENT: FASTING:YES Test Performed at: [facility] [address] [place] [address] PETAR COELHO DO,MPH Blood specimen (specimen) BLOOD SPECIMEN / Unknown 12/01/2014 11:30 AM INSIDE SALES REPRESENTATIVE 12/01/2014 11:31 AM INSIDE SALES REPRESENTATIVE Luis A Souza MD LAB - CHEMISTRY MARYAM [facility]) from Last 3 Months or Most Recently Relevant to Health Maintenance Advance Directives Documents on File Type Date Recorded Patient Base Cloth Inspector Expl anation Adv Directive/Living Will/POA 11/25/2019 8:21 PM * Full Code (Latest Code Status on File) Date Activated Date Inactivated Comments 11/22/2019 6:38 PM 11/24/2019 1:33 PM
--- OUTSIDE RECORDS SUMMARY | 2024-12-20 13:40 | XMS_ITS ---
Author Organization [facility] Address [address] [place] [address] [address] [facility] [address] [place] [address] Care Team Providers Care Atomic Physics Professor Name Role Phone Dawson Medel MD Primary Care Provider Unavaila Lizeth Kaba Unavailable [phone] REASON FOR VISIT ARIPiprazole Social History Sex Assigned At : Social History Observation Description Sex Assigned At Female Encounters Encounter Location Date Provider Diagnosis [address] [facility] [address] [place] [address] 11/01/2024 Lizeth Carlos Plan Of Treatment Next Appt Details Provider Name:Lizeth Carlos, 01/13/2025 03:30:00 PM, [address], [facility] [address], [place], [address], Progress Notes * RHEA BREWEROB:1970 ([age] yo F)Acc No.[id number]:11/01/2024 Patient: ЕЛЕНА JOHNN :1970 A ge:54 Y S ex:Female Phone: Address:[address] [place], [address] * true * Date: Generated for Printi ng/Faxing/eTransmitting on: 0 12/20/2024 01:39 PM CDT
--- OUTSIDE RECORDS SUMMARY | 2024-12-20 13:40 | XMS_ITS | Clinical Summary ---
Author Organization [facility] [employer] Address [address] [place] [address] Care Team Providers Care Creative Services Intern Name Role Phone Unavailable Primary Care Provider Unavailabl e Source Comments [facility],non-owned Affiliates and Associated Physician Practices is amultiple site organization consisting of ambulatory clinics and hospital sitesin [place], [place], [place] and [place]. This disclosure is being madepursuant to the Care Everywhere program and may not contain all information available regarding this patient. Last updated 18.[facility] [employer] Allergies No known active allergies Medications * [...] machines and device s 11/28/2014 Obesity 11/28/2014 Family History Medical History Relation Name Comments CAD (Coronary Artery Disease) Father Cancer - Lung Mother Relation Name Status Comments Father Mother Social History Tobacco Use Types Packs/Day Years Used Date Smoking Tobacco: Former Cigarettes Q uit: 2008 Smokeless Tobacco: Never Comments:quit 12 years ago Alcohol Use Standard Drinks/Week Comments No 0 (1 standard drink = 0.6 oz pur e alcohol) Sex and Gender Information Value Date Recorded Sex Assigned at Not on file Gender Identity Not on file Sexual Orientation Not on file Last Filed Vital Signs Vital Sign Reading Time Taken Comments Blood Pressure 120/82 09/15/2024 9:15 AM PLANT HR MANAGER Pulse 75 09/15/2024 9:15 AM PLANT HR MANAGER Temperature 36.3 C (97.3 F) 09/15/2024 9:15 AM PLANT HR MANAGER Respiratory Rate 18 01/24/2022 8:16 AM CDT Oxygen Saturation 96% 09/15/2024 9:15 AM PLANT HR MANAGER Inhaled Oxygen Concentration - - Weight 78.9 kg (174 lb) 09/15/2024 9:15 AM PLANT HR MANAGER Height 160 cm (5' 3 ) 09/15/2024 9:15 AM PLANT HR MANAGER Body Mass Index 30.82 09/15/2024 9:15 AM PLANT HR MANAGER Plan of Treatment Health Maintenance Due Date Last Done Comments COLOGUARD (AGES 45-75) - COLON CA SCREENING 1970 COLON MONITORING 1969 COLONOSCOPY - COLON CA SCREENING 1969 CT COLONOGRAPHY - COLON CA SCREENING 1969 Colorectal Cancer Screening 1970 FIT - COLON CA SCREENING 1969 FLEX SIG - COLON CA SCREENING 1969 MAMMOGRAM 1970 PAP SMEAR 1969 HIV SCREENING 1984 HEPATITIS C SCREENING 06/24/1987 DTAP/TDAP/TD VACCINES (1 - Tdap) 1988 HEPATITIS B VACCINE (1 of 3 - 19+ 3-dose series) 1988 PNEUMOCOCCAL VACCINE 50+ (1 of 2 - PCV) 1988 PNEUMOCOCCAL VACCINE (1 of 2 - PCV) 1988 DIABETES-STATIN 2009 DIABETES RETINOPATHY SCREENING 06/11/2019 DIABETES-FOOT EXAM WITH MONOFILAMENT 06/11/2019 DIABETES-HGB A1C 06/11/2019 12/01/2014 ZOSTER VACCINE (1 of 2) 2019 DIABETES-SERUM CREATININE 10/27/20222021, 11/29/2020, 05/31/2020, Additional history exists COVID-19 VACCINE ( season) 2024 08/19/2021, 01/14/2021, 12/21/2020 INFLUENZA VACCINE (#1) 2024 , 06/27/2020, 07/02/2018 DEPRESSION SCREENING 10/06/2024 DIABETES - URINE PROTEIN SCREENING 10/06/2024 HIB VACCINE Aged Out No longer eligi ble based on patient's age to complete this topic HPV VACCINE Aged Out No longer eligi ble based on patient's age to complete this topic MENINGOCOCCAL (Group B) VACCINE SHARED DECISION-MAKING Aged Out No longer eligible based on patient's age to complete this topic MENINGOCOCCAL GROUPS A/C/Y/W VACCINE Aged Out No longer eligible based on patient's age to complete this topic Procedures Procedure Name Priority Date/Time Associated Diagnosis Comments COMPREHENSIVE METABOLIC PANEL Routine 10/27/2021 10:10 AM PLANT HR MANAGER S/P bariatric surgery Vitamin deficiency Mineral deficiency Vitamin D deficiency Intestinal malabsorption, unspecified type (HCC) Class 1 obesity with body mass index (BMI) of 31.0 to 31.9 in adult, unspecified obesity type, unspecified whether serious comorbidity present HEMOGLOBIN A1C Routine 12/01/2014 11:30 AM PLANT HR MANAGER from Last 3 Months or Most Recently Relevant to Health Maintenance Results * COMPREHENSIVE METABOLIC PANEL (10/27/2021 10:10 AM PLANT HR MANAGER) Glucose 91 65 - 99 mg/dL [facility] ACCOUNT BILL BUN 11 6 - 24 mg/dL [facility] ACCOUNT BILL Creatinine 0.73 0.57 - 1.00 mg/dL [facility] ACCOUNT BILL eGFR by MDRD 95 >59 mL/min/1. 73 [facility] ACCOUNT BILL eGFR by MDRD 110 >59 mL/min/1. 73 [facility] ACCOUNT BILL Comment: In accordance with recommendations from the NKF-ASN Task force, [facility] is in the process of updating its [...] BLOOD SPECIMEN / Unknown 10/27/2021 10:10 AM PLANT HR MANAGER 10/27/2021 Narrative Resulting Agency Comment Lab Testing performed at: [facility] [place] [address] [facility] [id number] Rosie Miller TAX EVALUATOR-OPTICAL LENS MANUFACTURING TECH LAB - RUSSELL EDGARD ORDERABLES [facility] ACCOUNT BILL [address] [place] [address] * (ABNORMAL) HEMOGLOBIN A1C (12/01/2014 11:30 AM PLANT HR MANAGER) Hemoglobin A1c 6.3(H) <5.7 % of total Hgb [facility] Comment: According to ADA guidelines, hemoglobin A1c [...] children. REPORT COMMENT: FASTING:YES Test Performed at: [facility] [address] [place] [address] PETAR COELHO DO,MPH Blood specimen (specimen) BLOOD SPECIMEN / Unknown 12/01/2014 11:30 AM PLANT HR MANAGER 12/01/2014 11:31 AM PLANT HR MANAGER Luis A Souza MD LAB - CHEMISTRY MARYAM GARCIA [facility] from Last 3 Months or Most Recently Relevant to Health Maintenance Advance Directives Documents on File Type Date Recorded Patient Putty Remover Expl anation Adv Directive/Living Will/POA 11/25/2019 8:21 PM * Full Code (Latest Code Status on File) Date Activated Date Inactivated Comments 11/22/2019 6:38 PM 11/24/2019 1:33 PM
--- OUTSIDE RECORDS SUMMARY | 2024-12-20 13:40 | XMS_ITS | Continuity of Care Document ---
Author Organization [facility] Address [address] [facility] [address] [place] [id number] Insurance Providers Payer Plan Claims Address Claims Phone Policy Number Group Number Relation Employer Guarantor Name Guarantor Guarantor Address Guarantor Phone Kojo George [id number] [place] [address] [phone] Self Maral Bernabe 1970 [address], [place], [place] [id number] Kojo George [id number] [place] [address] tel:[phone] Self Maral Srinivasa 1970 [address], [place] [address] Kojo George [address] [place] [address] [phone] Self Maral Bernabe 1970 [address], [place] [address] Problems Unknown Problems Results Test Value / Unit Interpretation Reference Ran Comp. Metabolic Panel (14)[[id number]] Collected: 10/23/2024 05:47 PM Specimen Received: 10/23/2024 05:00 AM Source: [facility] Glucose [[id number]] 91 mg/dL 70-99 mg/dL BUN [623792] 15 mg/dL 6-24 mg/dL Creatinine [981617] 0.84 mg/dL 0.57-1.0 0 mg/dL eGFR [680413] 82 mL/min/1.73 >59 mL/min/1 .73 BUN/Creatinine Ratio [596847] 18 9-23 Sodium [989946] 139 mmol/L 134-144 mmol /L Potassium [352433] 5.4 mmol/L H 3.5-5.2 m mol/L Chloride [115024] 102 mmol/L 96-106 mmo l/L Carbon Dioxide, Total [639956] 26 mmol/L 20-29 mmol/L Calcium [419607] 9.3 mg/dL 8.7-10.2 mg /dL Protein, Total [285290] 6.3 g/dL 6.0- 8.5 g/dL Albumin [811536] 4.1 g/dL 3.8-4.9 g/d L Globulin, Total [360212] 2.2 g/dL 1.5 -4.5 g/dL Bilirubin, Total [544174] 0.4 mg/dL 0. 0-1.2 mg/dL Alkaline Phosphatase [020350] 84 IU/L 44-121 IU/L AST (SGOT) [463509] 35 IU/L 0-40 IU/ L ALT (SGPT) [496478] 36 IU/L H 0-32 IU/ L Lipid Panel[[id number]] Collected: 10/23/2024 05:47 PM Specimen Received: 10/23/2024 05:00 AM Source: [facility] Cholesterol, Total [553725] 203 mg/dL H 100-199 mg/dL Triglycerides [142572] 64 mg/dL 0-149 mg/dL HDL Cholesterol [901487] 87 mg/dL >39 mg/dL VLDL Cholesterol Sheldon [449286] 12 mg/dL 5-40 mg/dL LDL Chol Calc (NIH) [808599] 104 mg/dL H 0-99 mg/dL Hemoglobin A1c[597192] Collected: 10/23/2024 05:47 PM Specimen Received: 10/23/2024 05:00 AM Source: [facility] Hemoglobin A1c [182353] 5.7 % H 4.8- 5.6 % . Prediabetes: 5.7 - 6.4 Jacqui betes: >6.4 Glycemic control for adults with diabetes: 7.0 Allergies, adverse reactions, alerts No known allergies and adverse reactions Medications No administered medications reported Vital Signs No vital signs reported Social History No smoking Hx information available
--- OUTSIDE RECORDS SUMMARY | 2024-12-20 13:40 | XMS_ITS | Patient Health Summary ---
Author Organization [facility] Address [address] [place] [address] Care Team Providers Care Copywriter Name Role Phone Unavailable Primary Care Provider Unavailabl e Note from [facility],non-owned Affiliates and Associated Physician Practices is amultiple site organization consisting of ambulatory clinics and hospital sitesin [place], [place], [place] and [place]. This disclosure is being madepursuant to the Care Everywhere program and may not contain all information available regarding this patient. Last updated 18.[facility] Allergies No known active allergies Medications * Be aware that medications may not be up to date on this document. Alwaysverify current medications with the patient. * citalopram (CELEXA) 20 MG tablet Take 1.5 (one and one-half) tablets by mouth once daily * Other Bariatric multivitamin iron free * vitamin D3-cholecalciferol (CHOLECALCIFEROL) 25 MCG (1000 UNITS) tablet (Started 11/23/2019) Take 1 tablet by mouth once daily * lisinopril (PRINIVIL; ZESTRIL) 10 MG tablet(Started 05/18/2020) 1 (one) tablet at bedtime * amLODIPine (NORVASC) 5 MG tablet(Started 06/27/2020) 1 (one) tablet at bedtime * calcium-vitamin D (OS-DAJA 500 + D) 500-200 mg-unit tablet Take 1 (one) tablet by mouth once daily * omeprazole (PRILOSEC) 40 MG capsule(Started 11/01/2021) Take 1 (one) capsule by mouth 2 times daily, before breakfast and supper 3 refills by 11/01/2022 * traZODone (DESYREL) 50 MG tablet Take 1 (one) tablet by mouth at bedtime * Rhubarb (ESTROVEN COMPLETE PO) * ondansetron, disintegrating, (Zofran ODT) 4 MG tablet(Started 08/12/2023) Take 1 (one) tablet by mouth every 6 hours as needed for Nausea/Vomiting Allow tablet to dissolve on the tongue 1 refill by 08/11/2024 * omeprazole (PriLOSEC) 20 MG capsule(Started 05/31/2024) Take 1 capsule by mouth once daily. 3 refills by 05/31/2025 * ARIPiprazole (Abilify) 5 MG tablet Take 1 (one) tablet by mouth once daily * ondansetron, disintegrating, (Zofran ODT) 4 MG tablet(Started 08/18/2024) Take 1 (one) tablet by mouth every 6 hours as needed for Nausea/Vomiting Allow tablet to dissolve on the tongue 1 refill by 08/18/2025 Active Problems Problem Noted Date Diagnosed Date [...] Comments Blood Pressure 120/82 09/15/2024 9:15 AM POWER SCREWDRIVER OPERATOR Pulse 75 09/15/2024 9:15 AM POWER SCREWDRIVER OPERATOR Temperature 36.3 C (97.3 F) 09/15/2024 9:15 AM POWER SCREWDRIVER OPERATOR Respiratory Rate 18 01/24/2022 8:16 AM CDT Oxygen Saturation 96% 09/15/2024 9:15 AM POWER SCREWDRIVER OPERATOR Inhaled Oxygen Concentration - - Weight 78.9 kg (174 lb) 09/15/2024 9:15 AM POWER SCREWDRIVER OPERATOR Height 160 cm (5' 3 ) 09/15/2024 9:15 AM POWER SCREWDRIVER OPERATOR Body Mass Index 30.82 09/15/2024 9:15 AM POWER SCREWDRIVER OPERATOR Procedures * IRON + TIBC PANEL(Performed 08/21/2024) Performed for Vitamin deficiency, Mineral deficiency, Intestinal malabsorption, unspecified type (HCC), Class 1 obesity with body mass index (BMI) of 31.0 to 31.9 in adult, unspecified obesity type, unspecified whether serious comorbidity present, S/P bariatric surgery, Vitamin B deficiency, Vitamin D deficiency * VITAMIN A(Performed 08/21/2024) Performed for Vitamin deficiency, Mineral deficiency, Intestinal malabsorption, unspecified type (HCC), Class 1 obesity with body mass index (BMI) of 31.0 to 31.9 in adult, unspecified obesity type, unspecified whether serious comorbidity present, S/P bariatric surgery, Vitamin B deficiency, Vitamin D deficiency * VITAMIN B1(Performed 08/21/2024) Performed for Vitamin deficiency, Mineral deficiency, Intestinal malabsorption, unspecified type (HCC), Class 1 obesity with body mass index (BMI) of 31.0 to 31.9 in adult, unspecified obesity type, unspecified whether serious comorbidity present, S/P bariatric surgery, Vitamin B deficiency, Vitamin D deficiency * VITAMIN E(Performed 08/21/2024) Performed for Vitamin deficiency, Mineral deficiency, Intestinal malabsorption, unspecified type (HCC), Class 1 obesity with body mass index (BMI) of 31.0 to 31.9 in adult, unspecified obesity type, unspecified whether serious comorbidity present, S/P bariatric surgery, Vitamin B deficiency, Vitamin D deficiency * VITAMIN K1(Performed 08/21/2024) Performed for Vitamin deficiency, Mineral deficiency, Intestinal malabsorption, unspecified type (HCC), Class 1 obesity with body mass index (BMI) of 31.0 to 31.9 in adult, unspecified obesity type, unspecified whether serious comorbidity present, S/P bariatric surgery, Vitamin B deficiency, Vitamin D deficiency * ZINC BLOOD(Performed 08/21/2024) Performed for Vitamin deficiency, Mineral deficiency, Intestinal malabsorption, unspecified type (HCC), Class 1 obesity with body mass index (BMI) of 31.0 to 31.9 in adult, unspecified obesity type, unspecified whether serious comorbidity present, S/P bariatric surgery, Vitamin B deficiency, Vitamin D deficiency * PTH INTACT(Performed 08/21/2024) Performed for Vitamin deficiency, Mineral deficiency, Intestinal malabsorption, unspecified type (HCC), Class 1 obesity with body mass index (BMI) of 31.0 to 31.9 in adult, unspecified obesity type, unspecified whether serious comorbidity present, S/P bariatric surgery, Vitamin B deficiency, Vitamin D deficiency * PREALBUMIN(Performed 08/21/2024) Performed for Vitamin deficiency, Mineral deficiency, Intestinal malabsorption, unspecified type (HCC), Class 1 obesity with body mass index (BMI) of 31.0 to 31.9 in adult, unspecified obesity type, unspecified whether serious comorbidity present, S/P bariatric surgery, Vitamin B deficiency, Vitamin D deficiency * MAGNESIUM BLOOD(Performed 08/21/2024) Performed for Vitamin deficiency, Mineral deficiency, Intestinal malabsorption, unspecified type (HCC), Class 1 obesity with body mass index (BMI) of 31.0 to 31.9 in adult, unspecified obesity type, unspecified whether serious comorbidity present, S/P bariatric surgery, Vitamin B deficiency, Vitamin D deficiency * FERRITIN(Performed 08/21/2024) Performed for Vitamin deficiency, Mineral deficiency, Intestinal malabsorption, unspecified type (HCC), Class 1 obesity with body mass index (BMI) of 31.0 to 31.9 in adult, unspecified obesity type, unspecified whether serious comorbidity present, S/P bariatric surgery, Vitamin B deficiency, Vitamin D deficiency * COPPER BLOOD(Performed 08/21/2024) Performed for Vitamin deficiency, Mineral deficiency, Intestinal malabsorption, unspecified type (HCC), Class 1 obesity with body mass index (BMI) of 31.0 to 31.9 in adult, unspecified obesity type, unspecified whether serious comorbidity present, S/P bariatric surgery, Vitamin B deficiency, Vitamin D deficiency * VITAMIN K1(Performed 08/18/2023) Performed for Vitamin deficiency, Mineral deficiency, Intestinal malabsorption, unspecified type (HCC), Class 1 obesity with body mass index (BMI) of 31.0 to 31.9 in adult, unspecified obesity type, unspecified whether serious comorbidity present, S/P bariatric surgery, Vitamin B deficiency * VITAMIN E(Performed 08/18/2023) Performed for Vitamin deficiency, Mineral deficiency, Intestinal malabsorption, unspecified type (HCC), Class 1 obesity with body mass index (BMI) of 31.0 to 31.9 in adult, unspecified obesity type, unspecified whether serious comorbidity present, S/P bariatric surgery, Vitamin B deficiency * VITAMIN A(Performed 08/18/2023) Performed for Vitamin deficiency, Mineral deficiency, Intestinal malabsorption, unspecified type (HCC), Class 1 obesity with body mass index (BMI) of 31.0 to 31.9 in adult, unspecified obesity type, unspecified whether serious comorbidity present, S/P bariatric surgery, Vitamin B deficiency * PREALBUMIN(Performed 08/18/2023) Performed for Vitamin deficiency, Mineral deficiency, Intestinal malabsorption, unspecified type (HCC), Class 1 obesity with body mass index (BMI) of 31.0 to 31.9 in adult, unspecified obesity type, unspecified whether serious comorbidity present, S/P bariatric surgery, Vitamin B deficiency * ZINC BLOOD(Performed 08/18/2023) Performed for Vitamin deficiency, Mineral deficiency, Intestinal malabsorption, unspecified type (HCC), Class 1 obesity with body mass index (BMI) of 31.0 to 31.9 in adult, unspecified obesity type, unspecified whether serious comorbidity present, S/P bariatric surgery, Vitamin B deficiency * VITAMIN B1(Performed 08/18/2023) Performed for Vitamin deficiency, Mineral deficiency, Intestinal malabsorption, unspecified type (HCC), Class 1 obesity with body mass index (BMI) of 31.0 to 31.9 in adult, unspecified obesity type, unspecified whether serious comorbidity present, S/P bariatric surgery, Vitamin B deficiency * IRON + TIBC PANEL(Performed 08/18/2023) Performed for Vitamin deficiency, Mineral deficiency, Intestinal malabsorption, unspecified type (HCC), Class 1 obesity with body mass index (BMI) of 31.0 to 31.9 in adult, unspecified obesity type, unspecified whether serious comorbidity present, S/P bariatric surgery, Vitamin B deficiency * PTH INTACT(Performed 08/18/2023) Performed for Vitamin deficiency, Mineral deficiency, Intestinal malabsorption, unspecified type (HCC), Class 1 obesity with body mass index (BMI) of 31.0 to 31.9 in adult, unspecified obesity type, unspecified whether serious comorbidity present, S/P bariatric surgery, Vitamin B deficiency * MAGNESIUM BLOOD(Performed 08/18/2023) Performed for Vitamin deficiency, Mineral deficiency, Intestinal malabsorption, unspecified type (HCC), Class 1 obesity with body mass index (BMI) of 31.0 to 31.9 in adult, unspecified obesity type, unspecified whether serious comorbidity present, S/P bariatric surgery, Vitamin B deficiency * FERRITIN(Performed 08/18/2023) Performed for Vitamin deficiency, Mineral deficiency, Intestinal malabsorption, unspecified type (HCC), Class 1 obesity with body mass index (BMI) of 31.0 to 31.9 in adult, unspecified obesity type, unspecified whether serious comorbidity present, S/P bariatric surgery, Vitamin B deficiency * COPPER BLOOD(Performed 08/18/2023) Performed for Vitamin deficiency, Mineral deficiency, Intestinal malabsorption, unspecified type (HCC), Class 1 obesity with body mass index (BMI) of 31.0 to 31.9 in adult, unspecified obesity type, unspecified whether serious comorbidity present, S/P bariatric surgery, Vitamin B deficiency * HCG URINE QUAL POCT NOTIFICATION(Performed 01/24/2022) Performed for Preop examination * [facility] E[facility] FLEX TRANSORAL DX(Performed 01/24/2022) * EGD(Performed 01/24/2022) Performed for Peptic ulcer * HCG URINE QUALITATIVE - POCT (IP) INTERFACED(Performed 01/24/2022) * HCG URINE QUAL POCT NOTIFICATION(Performed 11/01/2021) Performed for Pre-op testing * [facility] EGD FLEX TRANSORAL DX(Performed 11/01/2021) * EGD(Performed 11/01/2021) Performed for Morbid obesity due to excess calories (HCC), S/P bariatric surgery, Other specified intestinal malabsorption (HCC) * HCG URINE QUALITATIVE - POCT (IP) INTERFACED(Performed 11/01/2021) * COMPREHENSIVE METABOLIC PANEL(Performed 10/27/2021) Performed for S/P bariatric surgery, Vitamin deficiency, Mineral deficiency, Vitamin D deficiency, Intestinal malabsorption, unspecified type (HCC), Class 1 obesity with body mass index (BMI) of 31.0to 31.9 in adult, unspecified obesity type, unspecified whether serious comorbidity present * FOLATE(Performed 10/12/2021) Performed for Morbid obesity due to excess calories (HCC), S/P bariatric surgery, Other specified intestinal malabsorption (HCC) * ZINC BLOOD(Performed 10/12/2021) Performed for Morbid obesity due to excess calories (HCC), S/P bariatric surgery, Other specified intestinal malabsorption (HCC) * VITAMIN E(Performed 10/12/2021) Performed for Morbid obesity due to excess calories (HCC), S/P bariatric surgery, Other specified intestinal malabsorption (HCC) * VITAMIN K1(Performed 10/12/2021) Performed for Morbid obesity due to excess calories (HCC), S/P bariatric surgery, Other specified intestinal malabsorption (HCC) * VITAMIN B1(Performed 10/12/2021) Performed for Morbid obesity due to excess calories (HCC), S/P bariatric surgery, Other specified intestinal malabsorption (HCC) * VITAMIN B12(Performed 10/12/2021) Performed for Morbid obesity due to excess calories (HCC), S/P bariatric surgery, Other specified intestinal malabsorption (HCC) * VITAMIN D 25-HYDROXY(Performed 10/12/2021) Performed for Morbid obesity due to excess calories (HCC), S/P bariatric surgery, Other specified intestinal malabsorption (HCC) * VITAMIN A(Performed 10/12/2021) Performed for Morbid obesity due to excess calories (HCC), S/P bariatric surgery, Other specified intestinal malabsorption (HCC) * PTH INTACT(Performed 10/12/2021) Performed for Morbid obesity due to excess calories (HCC), S/P bariatric surgery, Other specified intestinal malabsorption (HCC) * PREALBUMIN(Performed 10/12/2021) Performed for Morbid obesity due to excess calories (HCC), S/P bariatric surgery, Other specified intestinal malabsorption (HCC) * IRON + TIBC PANEL(Performed 10/12/2021) Performed for Morbid obesity due to excess calories (HCC), S/P bariatric surgery, Other specified intestinal malabsorption (HCC) * FERRITIN(Performed 10/12/2021) Performed for Morbid obesity due to excess calories (HCC), S/P bariatric surgery, Other specified intestinal malabsorption (HCC) * COPPER BLOOD(Performed 10/12/2021) Performed for Morbid obesity due to excess calories (HCC), S/P bariatric surgery, Other specified intestinal malabsorption (HCC) * ZINC BLOOD(Performed 11/29/2020) Performed for Morbid obesity due to excess calories (HCC), Other specified intestinal malabsorption(HCC), S/P bariatric surgery, NYASIA (obstructive sleep apnea) * VITAMIN D 25-HYDROXY(Performed 11/29/2020) Performed for Morbid obesity due to excess calories (HCC), Other specified intestinal malabsorption(HCC), S/P bariatric surgery, NYASIA (obstructive sleep apnea) * VITAMIN B12(Performed 11/29/2020) Performed for Morbid obesity due to excess calories (HCC), Other specified intestinal malabsorption(HCC), S/P bariatric surgery, NYASIA (obstructive sleep apnea) * VITAMIN B1(Performed 11/29/2020) Performed for Morbid obesity due to excess calories (HCC), Other specified intestinal malabsorption(HCC), S/P bariatric surgery, NYASIA (obstructive sleep apnea) * SELENIUM(Performed 11/29/2020) Performed for Morbid obesity due to excess calories (HCC), Other specified intestinal malabsorption(HCC), S/P bariatric surgery, NYASIA (obstructive sleep apnea) * FOLATE(Performed 11/29/2020) Performed for Morbid obesity due to excess calories (HCC), Other specified intestinal malabsorption(HCC), S/P bariatric surgery, NYASIA (obstructive sleep apnea) * PREALBUMIN(Performed 11/29/2020) Performed for Morbid obesity due to excess calories (HCC), Other specified intestinal malabsorption(HCC), S/P bariatric surgery, NYASIA (obstructive sleep apnea) * IRON + TIBC PANEL(Performed 11/29/2020) Performed for Morbid obesity due to excess calories (HCC), Other specified intestinal malabsorption(HCC), S/P bariatric surgery, NYASIA (obstructive sleep apnea) * COMPREHENSIVE METABOLIC PANEL(Performed 11/29/2020) Performed for Morbid obesity due to excess calories (HCC), Other specified intestinal malabsorption(HCC), S/P bariatric surgery, NYASIA (obstructive sleep apnea) * COPPER BLOOD(Performed 11/29/2020) Performed for Morbid obesity due to excess calories (HCC), Other specified intestinal malabsorption(HCC), S/P bariatric surgery, NYASIA (obstructive sleep apnea) * CARDIAC EKG ORDER(Performed 07/20/2020) * EKG 12-LEAD(Performed 07/19/2020) Performed for Preoperative examination * GLUCOSE - POINT OF CARE(Performed 07/19/2020) * PATHOLOGY TISSUE EXAM (STL)(Performed 07/19/2020) Performed for Diagnosis unknown * ENDOTRACHEAL TUBE NOTE(Performed 07/19/2020) * LAPAROSCOPIC REPAIR INTERNAL HERNIA(Performed 07/19/2020) * [facility] LAP,CHOLECYSTECTOMY/GRAPH(Performed 07/19/2020) * HCG BLOOD QUALITATIVE(Performed 07/19/2020) Performed for Preoperative examination * EKG 12-LEAD(Performed 07/19/2020) Performed for Preoperative examination * SARS-COV-2 (COVID-19) IN HOUSE(Performed 07/15/2020) Performed for Preop examination * SARS-COV2 (COVID-19) PANEL (STL)(Performed 07/15/2020) Performed for Preop examination * US ABDOMEN LIMITED(Performed 2020) Performed for S/P bariatric surgery, Abdominal pain, generalized * ZINC BLOOD(Performed 05/31/2020) Performed for Morbid obesity due to excess calories (HCC), S/P bariatric surgery, Other specified intestinal malabsorption (HCC), Gastroesophageal reflux disease, esophagitis presence not specified * VITAMIN D 25-HYDROXY(Performed 05/31/2020) Performed for Morbid obesity due to excess calories (HCC), S/P bariatric surgery, Other specified intestinal malabsorption (HCC), Gastroesophageal reflux disease, esophagitis presence not specified * VITAMIN B12(Performed 05/31/2020) Performed for Morbid obesity due to excess calories (HCC), S/P bariatric surgery, Other specified intestinal malabsorption (HCC), Gastroesophageal reflux disease, esophagitis presence not specified * VITAMIN B1(Performed 05/31/2020) Performed for Morbid obesity due to excess calories (HCC), S/P bariatric surgery, Other specified intestinal malabsorption (HCC), Gastroesophageal reflux disease, esophagitis presence not specified * SELENIUM(Performed 05/31/2020) Performed for Morbid obesity due to excess calories (HCC), S/P bariatric surgery, Other specified intestinal malabsorption (HCC), Gastroesophageal reflux disease, esophagitis presence not specified * PREALBUMIN(Performed 05/31/2020) Performed for Morbid obesity due to excess calories (HCC), S/P bariatric surgery, Other specified intestinal malabsorption (HCC), Gastroesophageal reflux disease, esophagitis presence not specified * IRON + TIBC PANEL(Performed 05/31/2020) Performed for Morbid obesity due to excess calories (HCC), S/P bariatric surgery, Other specified intestinal malabsorption (HCC), Gastroesophageal reflux disease, esophagitis presence not specified * COPPER BLOOD(Performed 05/31/2020) Performed for Morbid obesity due to excess calories (HCC), S/P bariatric surgery, Other specified intestinal malabsorption (HCC), Gastroesophageal reflux disease, esophagitis presence not specified * FOLATE(Performed 05/31/2020) Performed for Morbid obesity due to excess calories ([facility]), S/P bariatric surgery, Other specified intestinal malabsorption (HCC), Gastroesophageal reflux disease, esophagitis presence not specified * COMPREHENSIVE METABOLIC PANEL(Performed 05/31/2020) Performed for Morbid obesity due to excess calories (HCC), S/P bariatric surgery, Other specified intestinal malabsorption (HCC), Gastroesophageal reflux disease, esophagitis presence not specified * CBC W AUTO DIFFERENTIAL(Performed 05/31/2020) Performed for Morbid obesity due to excess calories ([facility]), S/P bariatric surgery, Other specified intestinal malabsorption (HCC), Gastroesophageal reflux disease, esophagitis presence not specified * CBC W AUTO DIFFERENTIAL(Performed 11/24/2019) * BASIC METABOLIC PANEL (CALCIUM TOTAL)(Performed 11/24/2019) * POTASSIUM BLOOD(Performed 11/23/2019) * CBC W AUTO DIFFERENTIAL(Performed 11/23/2019) * FL UGI SERIES(Performed 11/23/2019) Performed for Class 3 severe obesity due to excess calories with serious comorbidity and body mass index (BMI) of 40.0 to 44.9 in adult ([facility]), Gastroesophageal reflux disease without esophagitis, Type 2 diabetes mellitus without complication, unspecified whether beamer helper insulin use ([facility]) * VITAMIN D 25-HYDROXY(Performed 11/23/2019) * CBC W AUTO DIFFERENTIAL(Performed 11/23/2019) * BASIC METABOLIC PANEL (CALCIUM TOTAL)(Performed 11/23/2019) * GLUCOSE - POINT OF CARE(Performed 11/22/2019) * GLUCOSE - POINT OF CARE(Performed 11/22/2019) * ENDOTRACHEAL TUBE NOTE(Performed 11/22/2019) * LAPAROSCOPIC GASTRIC BYPASS(Performed 11/22/2019) * HCG URINE QUALITATIVE(Performed 11/22/2019) Performed for Pre-op evaluation * EKG 12-LEAD(Performed 11/02/2019) Performed for Pre-op evaluation * VITAMIN B12(Performed 11/02/2019) Performed for Pre-op evaluation * VITAMIN B1(Performed 11/02/2019) Performed for Pre-op evaluation * COMPREHENSIVE METABOLIC PANEL(Performed 11/02/2019) Performed for Pre-op evaluation * CBC W AUTO DIFFERENTIAL(Performed 11/02/2019) Performed for Pre-op evaluation * FL UGI SERIES(Performed 07/01/2019) Performed for Morbid obesity due to excess calories (HCC), Gastroesophageal reflux disease, esophagitis presence not specified, Preop testing, S/P bariatric surgery * HCG URINE QUAL POCT NOTIFICATION(Performed 06/24/2019) Performed for Preop examination * EGD(Performed 06/24/2019) Performed for Morbid obesity due to excess calories (HCC), Gastroesophageal reflux disease, esophagitis presence not specified, Preop testing, S/P bariatric surgery * HELICOBACTER PYLORI UREASE (STL)(Performed 06/24/2019) Performed for Esophagitis, Gastritis, presence of bleeding unspecified, unspecified chronicity, unspecified gastritis type, Hiatal hernia * PATHOLOGY TISSUE EXAM (STL)(Performed 06/24/2019) Performed for Esophagitis, Gastritis, presence of bleeding unspecified, unspecified chronicity, unspecified gastritis type, Hiatal hernia * [facility] EGD FLEX TRANSORAL DX(Performed 06/24/2019) * HCG URINE QUALITATIVE - POCT (IP) INTERFACED(Performed 06/24/2019) * COMPLETE PFT W/WO BRONCHODILATOR(Performed 12/01/2014) * D-DIMER(Performed 12/01/2014) * B-TYPE NATRIURETIC PEPTIDE(Performed 12/01/2014) * HEMOGLOBIN A1C(Performed 12/01/2014) * INSULIN LEVEL FASTING(Performed 12/01/2014) * ECHO COMPLETE(Performed 12/01/2014) Results * VITAMIN K1 (08/21/2024 11:04 AM POWER SCREWDRIVER OPERATOR) Only the most recent of3 resultswithin the time period is included. Vitamin K1 0.19 0.10 - 2.20 ng/mL [facility] ACCOUNT BILL Blood BLOOD SPECIMEN / Unknown 08/21/2024 11:04 AM POWER SCREWDRIVER OPERATOR 08/21/2024 Narrative [facility] ACCOUNT BILL - 08/25/2024 1:11 PM POWER SCREWDRIVER OPERATOR Test(s) 902459-[id number] K1 was developed and its performance characteristics determined by [facility]. It has not been cleared or approved by the Food and Drug Administration. Performed at: 01 - [facility] [id number] Controls Design Engineer: Trey Nielson MD, Phone: [phone] Rosie Miller IMPORT/EXPORT ANALYST-INSURANCE PROCESSOR LAB - [facility] ORDERABLES Performing Organization Address City/State/[facility] Co de Phone Number [facility] ACCOUNT BILL [address] [place] [address] * ZINC BLOOD (08/21/2024 11:04 AM POWER SCREWDRIVER OPERATOR) Only the most recent of5 resultswithin the time period is included. Zinc, Plasma or Serum 59 44 - 115 ug/dL [facility] ACCOUNT BILL Comment:Detection Limit = 5 Blood BLOOD SPECIMEN / Unknown 08/21/2024 11:04 AM POWER SCREWDRIVER OPERATOR 08/21/2024 Narrative [facility] ACCOUNT BILL - 08/25/2024 12:07 AM POWER SCREWDRIVER OPERATOR Test(s) [id number], Plasma or Serum was developed and its performance characteristics determined by [facility]. It has not been cleared or approved by the Food and Drug Administration. Performed at: - [facility] [id number] Controls Design Engineer: Trey Nielson MD, Phone: [phone] Rosie Charles Angela IMPORT/EXPORT ANALYST-INSURANCE PROCESSOR LAB - [facility] ORDERABLES Performing Organization Address [facility] de Phone Number [facility] ACCOUNT BILL [address] [place] [address] * VITAMIN A (08/21/2024 11:04 AM POWER SCREWDRIVER OPERATOR) Only the most recent of3 resultswithin the time period is included. Vitamin A 60.6 20.1 - 62.0 ug/dL [facility] ACCOUNT BILL Comment: Reference intervals for vitamin A determined from [facility] internal studies. Individuals with vitamin A less than 20 ug/dL are considered vitamin A deficient and those with serum concentrations less than 10 ug/dL are considered severely deficient. This test was developed and its performance characteristics determined by [facility]. It has not been cleared or approved by the Food and Drug Administration. Blood BLOOD SPECIMEN / Unknown 08/21/2024 11:04 AM POWER SCREWDRIVER OPERATOR 08/21/2024 Narrative [facility] ACCOUNT BILL - 08/29/2024 5:07 PM POWER SCREWDRIVER OPERATOR Performed at: - [address] [id number] Controls Design Engineer: Trey Nielson MD, Phone: [phone] Rosie Araceli Miller IMPORT/EXPORT ANALYST-INSURANCE PROCESSOR LAB - [facility] ORDERABLES Performing Organization Address City/[facility]/ZIP Co de Phone Number [facility] ACCOUNT BILL [address] [place] [address] * VITAMIN E (08/21/2024 11:04 AM POWER SCREWDRIVER OPERATOR) Only the most recent of3 resultswithin the time period is included. Vitamin E Alpha Tocopherol 12.7 7.0 - 25.1 mg/L [facility] ACCOUNT BILL Vitamin E Gamma Tocopherol 0.6 0.5 - 5.5 mg/L [facility] ACCOUNT BILL Comment: Reference intervals for alpha and gamma-tocopherol determined from National Health and Nutrition Examination Survey, 5547-7026. Individuals with alpha-tocopherol levels less than 5.0 mg/L are considered vitamin E deficient. Blood BLOOD SPECIMEN / Unknown 08/21/2024 11:04 AM POWER SCREWDRIVER OPERATOR 08/21/2024 Narrative [facility] ACCOUNT BILL - 08/29/2024 5:07 PM POWER SCREWDRIVER OPERATOR Test(s) 667084-Nhmwwaz E(Alpha Tocopherol); 537198- Vitamin E(Gamma Tocopherol) was developed and its performance characteristics determined by [facility]. It has not been cleared or approved by the Food and Drug Administration. Performed at: 01 - [address] [id number] Controls Design Engineer: Trey Nielson MD, Phone: [phone] Rosie Miller APRN-INSURANCE PROCESSOR LAB - [facility] ORDERABLES [facility] ACCOUNT BILL [address] [place] [address] * VITAMIN B1 (08/21/2024 11:04 AM POWER SCREWDRIVER OPERATOR) Only the most recent of6 resultswithin the time period is included. Vitamin B1 Whole Blood 117.6 66.5 - 200.0 nmol/L [facility] ACCOUNT BILL Blood BLOOD SPECIMEN / Unknown 08/21/2024 11:04 AM POWER SCREWDRIVER OPERATOR 08/21/2024 Narrative [facility] ACCOUNT BILL - 08/25/2024 12:07 AM POWER SCREWDRIVER OPERATOR Test(s) 982146-Pwg. B1, Whole Blood was developed and its performance characteristics determined by [facility]. It has not been cleared or approved by the Food and Drug Administration. Performed at: [address] [id number] Controls Design Engineer: Trey Nielson MD, Phone: [phone] Rosie Gunnwally [facility] LAB - [facility] ORDERABLES Performing Organization Address City/[facility]/ZIP Co de Phone Number [facility] ACCOUNT BILL [address] [place] [address] * PTH INTACT (08/21/2024 11:04 AM POWER SCREWDRIVER OPERATOR) Only the most recent of3 resultswithin the time period is included. PTH Intact 37 15 - 65 pg/mL [facility] ACCOUNT BILL Blood BLOOD SPECIMEN / Unknown 08/21/2024 11:04 AM POWER SCREWDRIVER OPERATOR 08/21/2024 Narrative [facility] ACCOUNT BILL - 08/22/2024 11:07 AM POWER SCREWDRIVER OPERATOR Performed at: - Lab[address] [id number] Controls Design Engineer: Estevan Regalado PhD, Phone: [phone] Rosie Charles Angela [facility] LAB - [facility] ORDERABLES Performing Organization Address City/[facility] Co de Phone Number [facility] ACCOUNT BILL [address] [place] [address] * COPPER BLOOD (08/21/2024 11:04 AM POWER SCREWDRIVER OPERATOR) Only the most recent of5 resultswithin the time period is included. Copper 114 80 - 158 ug/dL [facility] ACCOUNT BILL Comment:Detection Limit = 5 Blood BLOOD SPECIMEN / Unknown 08/21/2024 11:04 AM POWER SCREWDRIVER OPERATOR 08/21/2024 Narrative [facility] ACCOUNT BILL - 08/25/2024 12:07 AM POWER SCREWDRIVER OPERATOR Test(s) 257171-Lnjvxo, Serum or Plasma was developed and its performance characteristics determined by [facility]. It has not been cleared or approved by the Food and Drug Administration. Performed at: [address] [id number] Controls Design Engineer: Trey Nielson MD, Phone: [phone] Rosie Miller IMPORT/EXPORT ANALYST-INSURANCE PROCESSOR LAB - [facility] ORDERABLES Performing Organization Address City/[facility]/ZIP Co de Phone Number [facility] ACCOUNT BILL [address] [place] [address] * PREALBUMIN (08/21/2024 11:04 AM POWER SCREWDRIVER OPERATOR) Only the most recent of5 resultswithin the time period is included. Prealbumin 22 10 - 36 mg/dL [facility] ACCOUNT BILL Blood BLOOD SPECIMEN / Unknown 08/21/2024 11:04 AM POWER SCREWDRIVER OPERATOR 08/21/2024 Narrative [facility] ACCOUNT BILL - 08/22/2024 9:08 AM POWER SCREWDRIVER OPERATOR Performed at: - [address] [id number] Controls Design Engineer: Estevan Regalado PhD, Phone: [phone] Rosie Miller IMPORT/EXPORT ANALYST-INSURANCE PROCESSOR LAB - [facility] ORDERABLES Performing Organization Address City/[facility] Co de Phone Number [facility] ACCOUNT BILL [address] [place] [address] * MAGNESIUM BLOOD (08/21/2024 11:04 AM POWER SCREWDRIVER OPERATOR) Only the most recent of2 resultswithin the time period is included. Magnesium 2.1 1.6 - 2.3 mg/dL [facility] ACCOUNT BILL Blood BLOOD SPECIMEN / Unknown 08/21/2024 11:04 AM POWER SCREWDRIVER OPERATOR 08/21/2024 Narrative [facility] ACCOUNT BILL - 08/22/2024 7:07 AM POWER SCREWDRIVER OPERATOR Performed at: [facility] [id number] Controls Design Engineer: Estevan Regalado PhD, Phone: [phone] Rosie Miller IMPORT/EXPORT ANALYST-INSURANCE PROCESSOR LAB - [facility] ORDERABLES [facility] ACCOUNT BILL [address] [place] [address] * IRON + TIBC PANEL (08/21/2024 11:04 AM POWER SCREWDRIVER OPERATOR) Only the most recent of5 resultswithin the time period is included. TIBC 338 250 - 450 ug/dL [facility] ACCOUNT BILL UIBC 260 131 - 425 ug/dL [facility] ACCOUNT BILL Iron 78 27 - 159 ug/dL [facility] ACCOUNT BILL Iron Saturation 23 15 - 55 % [facility] ACCOUNT BILL Blood BLOOD SPECIMEN / Unknown 08/21/2024 11:04 AM POWER SCREWDRIVER OPERATOR 08/21/2024 Narrative [facility] ACCOUNT BILL - 08/22/2024 7:07 AM POWER SCREWDRIVER OPERATOR Performed at: - [address] [id number] Controls Design Engineer: Estevan Regalado PhD, Phone: [phone] Rosie Langmckinley Miller IMPORT/EXPORT ANALYST-INSURANCE PROCESSOR LAB - [facility] ORDERABLES Performing Organization Address City/[facility] Co de Phone Number [facility] ACCOUNT BILL [address] [place] [address] * FERRITIN (08/21/2024 11:04 AM POWER SCREWDRIVER OPERATOR) Only the most recent of3 resultswithin the time period is included. Ferritin 28 15 - 150 ng/mL [facility] ACCOUNT BILL Blood BLOOD SPECIMEN / Unknown 08/21/2024 11:04 AM POWER SCREWDRIVER OPERATOR 08/21/2024 Narrative [facility] ACCOUNT BILL - 08/22/2024 8:10 AM POWER SCREWDRIVER OPERATOR Performed at: [address] [id number] Controls Design Engineer: Estevan Regalado PhD, Phone: [phone] Rosie Charles Angela IMPORT/EXPORT ANALYST-INSURANCE PROCESSOR LAB - [facility] ORDERABLES [facility] ACCOUNT BILL [address] [place] [address] * HCG URINE QUAL POCT NOTIFICATION (01/24/2022 8:32 AM CDT) Only the most recent of3 resultswithin the time period is included. Comment Notification Label Only - See Separate Report 01/24/2022 8:32 AM CDT [facility] Urine URINE / Unknown 7:07 AM CDT Alejandro Hicks MD LAB - URINALYSIS ORD ERABLES [facility] [address] [place] [address] * EGD (01/24/2022 7:15 AM CDT) Report Endoscopy POC _ Patient Name: Marlaede Bernabe Procedure Date: 01/24/2022 7:15 AM Date of : 1970 Admit Type: Outpatient Age: 51 Gender: Female Attending MD: Alejadnro Hicks MD _ Procedure: Upper GI endoscopy Indications: Assessment following Amber-en-Y gastrojejunostomy Providers: Alejandro Hicks MD (Doctor) Medicines: Monitored Anesthesia Care Complications: No immediate complications. _ Estimated Blood Loss: Estimated blood loss: none. Procedure: Pre-Anesthesia Assessment: - Prior to the procedure, a History and Physical was performed, and patient medications and allergies were reviewed. The patient's tolerance of previous anesthesia was also reviewed. The risks and benefits of the procedure and the sedation options and risks were discussed with the patient. All questions were answered, and informed consent was obtained. Prior Anticoagulants: The patient has taken no previous anticoagulant or antiplatelet agents. ASA Grade Assessment: III - A patient with severe systemic disease. After reviewing the risks and benefits, the patient was deemed in satisfactory condition to undergo the procedure. After obtaining informed consent, the endoscope was passed under direct vision. Throughout the procedure, the patient's blood pressure, pulse, and oxygen saturations were monitored continuously. The Endoscope was introduced through the mouth, and advanced to the proximal jejunum. The upper GI endoscopy was accomplished without difficulty. The patient tolerated the procedure well. Findings: The Z-line was regular and was found 38 cm from the incisors. Evidence of a gastric bypass was found. A gastric pouch with a 5.5 cm length from the GE junction to the gastrojejunal anastomosis was found. The staple line appeared intact. The gastrojejunal anastomosis was characterized by healthy appearing mucosa and the presence of no stomal ulceration. This was traversed. The examined jejunum was normal. _ Impression: - Z-line regular, 38 cm from the incisors. - Gastric bypass with a pouch 5.5 cm in length and intact staple line. Gastrojejunal anastomosis characterized by healthy appearing mucosa and no stomal ulceration. - Normal examined jejunum. - No specimens collected. Recommendation: - Discharge patient to home. - Resume previous diet. - Continue present medications. Procedure Code(s): --- Professional --- 91613, Esophagogastroduoden oscopy, flexible, transoral; diagnostic, including collection of specimen(s) by brushing or washing, when performed (separate procedure) --- Technical --- 33055, Esophagogastroduoden oscopy, flexible, transoral; diagnostic, including collection of specimen(s) by brushing or washing, when performed (separate procedure) Diagnosis Code(s): --- Professional --- Z98.84, Bariatric surgery status Z09, Encounter for follow-up examination after completed treatment for conditions other than malignant neoplasm Z98.0, Intestinal bypass and anastomosis status --- Technical --- Z98.84, Bariatric surgery status Z09, Encounter for follow-up examination after completed treatment for conditions other than malignant neoplasm Z98.0, Intestinal bypass and anastomosis status CPT copyright 2019 [employer]. All rights reserved. The codes documented in this report are preliminary and upon bioassayist review may be revised to meet current compliance requirements. Alejandro Hicks Alejandro Hicks MD 01/24/2022 7:52:08 AM This report has been signed electronically. Number of Addenda: 0 Note Initiated On: 01/24/2022 7:15 AM [facility] 01/24/2022 7:15 AM CDT Narrative Procedure Note Alejandro Hicks MD - 01/24/2022 7:52 AM CDT EGD completed. Normal bypass, no ulcer A full PDF copy of the report with photos is in the results and/or mediatab for your review. Please refer to this for full details of theprocedure. Continue PPI for another month then ok to discontinue FU as routine Alejandro Hicks MD Alejandro Hicks MD GI PROCEDURE ORDERAB LES [facility] [place] [address] * HCG URINE QUALITATIVE - POCT (IP) INTERFACED (01/24/2022 7:13 AM CDT) Only the most recent of3 resultswithin the time period is included. HCG Qual Urine Negative Negative 01/24/2022 7:18 AM CDT [facility] Urine URINE / Unknown 01/24/2022 7 :13 AM CDT 01/24/2022 7:18 AM CDT Alejandro Hicks MD LAB - POINT OF CARE ORDERABLES [facility] [address] [place] [address] * EGD (11/01/2021 7:14 AM POWER SCREWDRIVER OPERATOR) Report Endoscopy POC _ Patient Name: Maral Bernabe Procedure Date: 11/01/2021 7:14 AM Date of : 1970 Admit Type: Outpatient Age: 51 Gender: Female Attending MD: Alejandro Hicks , _ Procedure: Upper GI endoscopy Indications: Epigastric abdominal pain Providers: Alejandro Hicks (Doctor) Medicines: Monitored Anesthesia Care Complications: No immediate complications. _ Estimated Blood Loss: Estimated blood loss: none. Procedure: Pre-Anesthesia Assessment: - Prior to the procedure, a History and Physical was performed, and patient medications and allergies were reviewed. The patient's tolerance of previous anesthesia was also reviewed. The risks and benefits of the procedure and the sedation options and risks were discussed with the patient. All questions were answered, and informed consent was obtained. Prior Anticoagulants: The patient has taken no previous anticoagulant or antiplatelet agents. ASA Grade Assessment: III - A patient with severe systemic disease. After reviewing the risks and benefits, the patient was deemed in satisfactory condition to undergo the procedure. After obtaining informed consent, the endoscope was passed under direct vision. Throughout the procedure, the patient's blood pressure, pulse, and oxygen saturations were monitored continuously. The Endoscope was introduced through the mouth, and advanced to the proximal jejunum. The upper GI endoscopy was accomplished without difficulty. The patient tolerated the procedure well. Findings: The lower third of the esophagus was normal. Evidence of a gastric bypass was found. A gastric pouch with a 5.5 cm length from the GE junction to the gastrojejunal anastomosis was found. The staple line appeared intact. The gastrojejunal anastomosis was characterized by edema, erythema and ulceration. This was traversed. The examined jejunum was normal. _ Impression: - Normal lower third of esophagus. - Gastric bypass with a pouch 5.5 cm in length and intact staple line. Gastrojejunal anastomosis characterized by edema, erythema and ulceration. - Normal examined jejunum. - No specimens collected. Recommendation: - Discharge patient to home. - Resume previous diet. - Continue present medications. Procedure Code(s): --- Professional --- 56595, Esophagogastroduo denoscopy, flexible, transoral; diagnostic, including collection of specimen(s) by brushing or washing, when performed (separate procedure) --- Technical --- 91912, Esophagogastroduo denoscopy, flexible, transoral; diagnostic, including collection of specimen(s) by brushing or washing, when performed (separate procedure) Diagnosis Code(s): --- Professional --- Z98.84, Bariatric surgery status K28.9, Gastrojejunal ulcer, unspecified as acute or chronic, without hemorrhage or perforation R10.13, Epigastric pain --- Technical --- Z98.84, Bariatric surgery status K28.9, Gastrojejunal ulcer, unspecified as acute or chronic, without hemorrhage or perforation R10.13, Epigastric pain CPT copyright 2019 [employer]. All rights reserved. The codes documented in this report are preliminary and upon bioassayist review may be revised to meet current compliance requirements. Alejandro Hicks _ Alejandro Hicks, 11/01/2021 8:06:47 AM This report has been signed electronically. Number of Addenda: 0 Note Initiated On: 11/01/2021 7:14 AM [facility] 11/01/2021 7:14 AM POWER SCREWDRIVER OPERATOR Narrative Procedure Note Alejandro Hicks MD - 11/01/2021 8:07 AM CST EGD completed. Marginal ulcer. A full PDF copy of the report with photos is in the results and/or mediatab for your review. Please refer to this for full details of theprocedure. ppi BID carafate cytotec bid Repeat EGD in 3 months Alejandro Hicks MD Alejandro Hicks MD GI PROCEDURE ORDERAB LES [facility] [place] [address] * COMPREHENSIVE METABOLIC PANEL (10/27/2021 10:10 AM POWER SCREWDRIVER OPERATOR) Only the most recent of4 resultswithin the time period is included. Glucose 91 65 - 99 mg/dL [facility] ACCOUNT BILL BUN 11 6 - 24 mg/dL [facility] ACCOUNT BILL Creatinine 0.73 0.57 - 1.00 mg/dL [facility] ACCOUNT BILL eGFR by MDRD 95 >59 mL/min/1. 73 [facility] ACCOUNT BILL eGFR by MDRD 110 >59 mL/min/1. 73 [facility] ACCOUNT BILL Comment: In accordance with recommendations from the NKF-ASN Task force, [facility] is in the process of updating [...] BLOOD SPECIMEN / Unknown 10/27/2021 10:10 AM POWER SCREWDRIVER OPERATOR 10/27/2021 Narrative Resulting Agency Comment Lab Testing performed at: [facility] [address] [phone] Rosie Miller IMPORT/EXPORT ANALYST-INSURANCE PROCESSOR LAB - RUSSELL EDGARD ORDERABLES [facility] ACCOUNT BILL [address] [place] [address] * FOLATE (10/12/2021 1:13 PM POWER SCREWDRIVER OPERATOR) Only the most recent of3 resultswithin the time period is included. Folate 15.4 >3.0 ng/mL [facility] ACCOUNT BILL Comment: A serum folate concentration of less than 3.1 ng/mL is considered to represent clinical deficiency. Blood BLOOD SPECIMEN / Unknown 10/12/2021 1:13 PM POWER SCREWDRIVER OPERATOR 10/12/2021 Narrative Resulting Agency Comment Lab Testing performed at: [facility] [address] [id number] Alejandro Hicks MD LAB - CHEMISTRY MARYAM GARCIA [facility] ACCOUNT BILL [address] [place] [address] * VITAMIN D 25-HYDROXY (10/12/2021 1:12 PM POWER SCREWDRIVER OPERATOR) Only the most recent of4 resultswithin the time period is included. Vitamin D, 25 Hydroxy 40.7 30.0 - 100.0 ng/mL [facility] ACCOUNT BILL Comment: Vitamin D deficiency has been defined by the [place] of Medicine and an Endocrine Society practice guideline as a level of serum 25-OH vitamin D less than 20 ng/mL (1,2). The Endocrine Society went on to further define vitamin D insufficiency as a level between 21 and 29 ng/mL (2). 1. IOM ([place] of Medicine). 2010. Dietary reference intakes for calcium and D. [place]: The National Academies Press. 2. Olga MF, Salome NC, Amrik GILLESPIE, et al. Evaluation, treatment, and prevention of vitamin D deficiency: an Endocrine Society clinical practice guideline. JCEM. 2010; 96(7):1911-30. Blood BLOOD SPECIMEN / Unknown 10/12/2021 1:12 PM POWER SCREWDRIVER OPERATOR 10/12/2021 Narrative Resulting Agency Comment Lab Testing performed at: [facility] [address] [id number] Alejnadro Hicks MD LAB - CHEMISTRY MARYAM GARCIA [facility] ACCOUNT BILL [address] [place] [address] * (ABNORMAL) VITAMIN B12 (10/12/2021 1:12 PM POWER SCREWDRIVER OPERATOR) Only the most recent of4 resultswithin the time period is included. Vitamin B12 >2000(H) 232 - 1245 pg/mL [facility] ACCOUNT BILL Blood BLOOD SPECIMEN / Unknown 10/12/2021 1:12 PM POWER SCREWDRIVER OPERATOR 10/12/2021 Narrative Resulting Agency Comment [facility] [address] [phone] Alejandro Hicks MD LAB - CHEMISTRY MARYAM GARCIA Performing Organization Address [facility] de Phone Number [facility] ACCOUNT BILL [address] [place] [address] * SELENIUM (11/29/2020 3:48 PM POWER SCREWDRIVER OPERATOR) Only the most recent of2 resultswithin the time period is included. Selenium 140 93 - 198 ug/L [facility] INSURANCE BILL Comment:Please note refere nce interval change Blood BLOOD SPECIMEN / Unknown 11/29/2020 3:48 PM POWER SCREWDRIVER OPERATOR 11/29/2020 Narrative [facility] INSURANCE BILL - 12/01/2020 3:08 PM POWER SCREWDRIVER OPERATOR Test(s) 046363-Kmwvafpf, Serum/Plasma was developed and its performance characteristics determined by [facility]. It has not been cleared or approved by the Food and Drug Administration. Resulting Agency Comment Lab Testing performed at: [employer] [id number] Alejandro Hicks MD LAB - CHEMISTRY MARYAM GARCIA Performing Organization Address [facility] Co de Phone Number [facility] INSURANCE BILL [address] [place] [address] * CARDIAC EKG ORDER (07/20/2020 9:40 PM CDT) Narrative 07/20/2020 9:40 PM CDT Ordered by an unspecified provider. Scanned Document CARDIAC SERVICES ORD ERABLES * EKG 12-LEAD (07/19/2020 10:52 AM CDT) Only the most recent of3 resultswithin the time period is included. Ventricular Rate 81 BPM [facility] P-R Interval 152 ms [facility] QRS Duration ms 84 ms [facility] Q-T Interval ms 394 ms [facility] QTC Calculation (Bezet) 457 ms [facility] M[facility] Calculated P [place] 90 degrees [facility] MUSE Calculated R [place] 104 degrees [facility] MUSE Calculated T [place] 72 degrees [facility] Interpretation EKG 1100 Sinus rhythm 1574 with frequent ventricular premature complexes [wide QRS dur. ectopic beat with shortened RR int. (beat 4, 8, 12)] 7100 Abnormal right axis deviation [100 deg. < QRS axis =< 270 deg.] 8102 Low QRS voltage in chest leads [QRS deflection < 1.0 mV in chest leads] 9140 abnormal rhythm ECG Confirmed by Simeon Persaud ([id number]) on 07/19/2020 1:15:56 PM [facility] 07/19/2020 10:5 2 AM CDT 07/19/2020 1:15 PM CDT Rakel Tidwell DO ECG ORDERABLES Performing Organization Address [facility] de Phone Number [facility] * (ABNORMAL) GLUCOSE - POINT OF CARE (07/19/2020 8:59 AM CDT) Only the most recent of3 resultswithin the time period is included. Glucose WB/POC 110(H) 70 - 106 mg/dL 07/21/2020 7:04 AM CDT [facility] Specimen Type Venous 07/21/2020 7:04 AM CDT [facility] Blood BLOOD SPECIMEN / Unknown 07/19/2020 8:59 AM CDT 07/21/2020 7:04 AM CDT Alejandro Hicks MD LAB - POINT OF CARE ORDERABLES Performing Organization Address [facility] Co de Phone Number [facility] [address] [address] [place] [phone] * PATHOLOGY TISSUE EXAM (STL) (07/19/2020 7:59 AM CDT) Only the most recent of2 resultswithin the time period is included. Pathologist [facility] Case Report Surgical Pathology Report Case: [id number] Authorizing Provider: Alejandro Hicks MD Collected: 07/19/2020 07:59 AM Ordering Location: [facility] Received: 07/19/2020 10:41 AM Pathologist: Kisha Chatman MD Specimen: Gallbladder 07/21/2020 1:20 PM CDT [facility] Final Diagnosis Gallbladder, cholecystectomy: -- Cholelithiasis 07/21/2020 1:20 PM T [facility] Clinical History Symptomatic cholelithiasis. 07/21/2020 1:20 PM CDT [facility] Gross Description Received in formalin, labeled with the patient's name and gallbladder is a saccular gallbladder measuring 9 cm in length and up to 3.3 cm in diameter. The cystic duct has been stapled shut. The serosa is smooth, glistening, discolored a green tinge from the bile. There are no focal lesions on the serosa. The specimen is opened to reveal a lumen filled with bile and a few black and gritty particles/stones. The wall is thin, measuring less than 1 mm in thickness. The mucosa is velvety and smooth and discolored a green tinge. There are no focal lesions. Museum Host/Hostess sections including the cystic duct are submitted in A1. AB/ns 07/21/2020 1:20 PM CDT [facility] Microscopic Description Sections reveal gallbladder with no significant pathologic diagnoses. 07/21/2020 1:20 PM CDT [facility] Disclaimer All histochemical and/or immunohistochemical results are interpreted with controls that demonstrate appropriate staining reactions before reporting results. Note on use of immunocytochemistry reagents: This test was developed and its performance characteristic determined by [facility], Department of Laboratory Medicine. It has not been cleared or approved by the U.S. Food and Drug Administration (FDA). The FDA has determined that such clearance or approval is not necessary. The test is used for clinical purpose. It should not be regarded as investigational or for research. This laboratory is certified to perform high complexity testing. The performance characteristics of the IHC/CRISTIAN assays have been validated on formalin-fixed paraffin embedded tissues only. The assays have not been validated on decalcified tissues. Results should be interpreted with caution. 07/21/2020 1:20 PM CDT [facility] Embedded Images 07/21/2020 1:20 PM T [facility] Pathology/Cytolo gy ENTIRE GALLBLADDER / Unknown 07/19/2020 7:59 AM CDT 07/19/2020 10:41 AM CDT Alejandro Hicks MD LAB - PATHOLOGY/CYTO LOGY ORDERABLES Performing Organization Address [facility] Co de Phone Number [facility] [address] [phone] * ETT LINE PERFORMABLE (07/19/2020 7:47 AM CDT) Narrative Ayanna Garrison APRN-CRNA - 07/19/2020 7:47 AM CDT Ayanna Garrison APRN-CRNA 07/19/2020 7:47 AM Endotracheal Tube Placement: Patient Location: OR. Intubation Event Date/Time: 07/19/2020 7:39 AM Procedure: intubation (63662). Procedure Section: Sedation: under general anesthesia. Indications for Airway Management: anesthesia Induction: standard IV Patient Position: supine Mask Ventilation: easy. Blade Type: Deepika Blade Size: 3 Laryngoscopy View: grade 1 (full cords) Intubation Adjuncts: cricoid pressure Tube: endotracheal tube Placement: oral Tube type: cuff - inflated Tube Size (MM): 7 Depth of Insertion (CM): 22 Measured From: lips Cuff volume (mL): 5 Cuff Inflated With: air Number of Attempts: 1. Placement Verified By: direct visualization, bilateral breath sounds, chest auscultation and CO2 monitor Tube secured with: adhesive tape. Dentition unchanged? Yes Difficult Airway? No. Procedure Start Time: 07/19/2020 7:39 AM. Staff Section Anesthesia Provider: Ayanna Garrison APRN-CRNA, Performed the procedure Rakel Tidwell DO GENERAL ANESTHESIA O RDERABLES * HCG BLOOD QUALITATIVE (07/19/2020 6:22 AM CDT) HCG Qual Serum Negative Negative 07/19/2020 6:58 AM CDT [facility] Blood BLOOD SPECIMEN / Unknown Venipuncture / Unknown 07/19/2020 6:22 AM CDT 07/19/2020 6:35 AM CDT Rakel Tidwell DO LAB - CHEMISTRY MARYAM GARCIA Performing Organization Address [facility] Co de Phone Number [facility] [address] [place] [address] * SARS-COV-2 (COVID-19) IN HOUSE (07/15/2020 10:50 AM CDT) COVID-19 PCR Not detected Not detected 07/16/2020 5:58 AM CDT [facility] Microbiology SPECIMEN FROM NASOPHARYNGEAL STRUCTURE / Unknown Collection / Unknown 07/15/2020 10:50 AM CDT 07/15/2020 10:50 AM CDT Narrative [facility] - 07/16/2020 5:58 AM CDT This Real Time RT-PCR assay was developed and its performance characteristics determined by [facility]. This test has been authorized by the Food and Drug administration (FDA)under an Emergency Use Authorization (EUA). This test has been validated in accordance with the FDA's guidance document Policy for Diagnostic Testing in Laboratories Certified to perform High Complexity Testing under CLIA prior to Emergency Use Authorization for Coronavirus Disease-2019 during the Public Health Emergency issued on December 04, 2019. FDA independent review of this validation is pending. This test is only authorized for the duration of time the declaration that circumstances exist justifying the authorization of emergency use of in vitro diagnostic tests for detection of SARS-CoV-2 virus and/or diagnosis of COVID-19 infection under section 564(b)(1) of the Act, 21 U.S.C 360bbb-3 (b)(1), unless the authorization is terminated or revoked sooner. Fact Sheets for this EUA assay are available upon request. Alejandro Hicks MD LAB - MICROBIOLOGY O RDERABLES [facility] [address] [place] [address], [facility] [phone] * US ABDOMEN LIMITED (2020 7:44 AM CDT) Anatomical Region Laterality Modality Abdomen Ultrasound 2020 8:26 AM CDT Impressions 2020 8:27 AM CDT Gallbladder sludge without acute cholecystitis *Reading Radiologist: Magy Jain on 2020 at 8:27 AM Narrative 2020 8:27 AM CDT Ultrasound Abdomen Limited Indication: Abdominal pain Technique: Milton scale and color images of the abdomen Findings: The liver is normal. Small amount of layering sludge is seen within the gallbladder. No wall thickening or pericholecystic fluid. The Chacon's sign is negative. The visualized pancreas and common bile duct are normal. The right kidney is normal. Procedure Note Magy Jain MD - 2020 Ultrasound Abdomen Limited Indication: Abdominal pain Technique: Milton scale and color images of the abdomen Findings: The liver is normal. Small amount of layering sludge is seen within the gallbladder. No wall thickening or pericholecystic fluid. The Chacon's sign is negative. The visualized pancreas and common bile duct are normal. The right kidney is normal. IMPRESSION Gallbladder sludge without acute cholecystitis *Reading Radiologist: Magy Jain on 2020 at 8:27 AM Alejandro Hicks MD US ORDERABLES * CBC WITH DIFFERENTIAL (05/31/2020 4:03 PM CDT) Only the most recent of5 resultswithin the time period is included. WBC 6.6 3.4 - 10.8 x10E3/uL [facility] ACCOUNT BILL RBC 4.20 3.77 - 5.28 x10E6/uL [facility] ACCOUNT BILL Hemoglobin 12.7 11.1 - 15.9 g/dL [facility] ACCOUNT BILL Hematocrit 37.8 34.0 - 46.6 % [facility] ACCOUNT BILL MCV 90 79 - 97 fL [facility] ACCOUNT BILL MCH 30.2 26.6 - 33.0 pg [facility] ACCOUNT BILL MCHC 33.6 31.5 - 35.7 g/dL [facility] ACCOUNT BILL RDW 12.6 11.7 - 15.4 % [facility] ACCOUNT BILL Platelet Count 259 150 - 450 x10E3/uL [facility] ACCOUNT BILL Granulocytes % 58 Not Estab. % [facility] ACCOUNT BILL Lymphocytes % 28 Not Estab. % [facility] ACCOUNT BILL Monocytes % 10 Not Estab. % [facility] ACCOUNT BILL Eosinophils % 3 Not Estab. % [facility] ACCOUNT BILL Basophils % 1 Not Estab. % [facility] ACCOUNT BILL Immature Cells NOT NEEDED [facility] ACCOUNT BILL Comment:Ancillary determined the test is not needed. Granulocytes Absolute 3.8 1.4 - 7.0 x10E3/uL [facility] ACCOUNT BILL Lymphocytes Absolute 1.9 0.7 - 3.1 x10E3/uL [facility] ACCOUNT BILL Monocytes Absolute 0.6 0.1 - 0.9 x10E3/uL [facility] ACCOUNT BILL Eosinophils Absolute 0.2 0.0 - 0.4 x10E3/uL [facility] ACCOUNT BILL Basophils Absolute 0.1 0.0 - 0.2 x10E3/uL [facility] ACCOUNT BILL Immature Granulocytes 0 Not Estab. % [facility] ACCOUNT BILL Immature Granulocytes Absolute 0.0 0.0 - 0.1 x10E3/uL [facility] ACCOUNT BILL nRBC NOT NEEDED [facility] ACCOUNT BILL Comment:Ancillary determined the test is not needed. Comment Hematology NOT NEEDED [facility] ACCOUNT BILL Comment:Ancillary determined the test is not needed. Blood BLOOD SPECIMEN / Unknown 05/31/2020 4:03 PM CDT 05/31/2020 Narrative Resulting Agency Comment Lab Testing performed at: [facility] [address] [id number] Alejandro Hicks MD LAB - HEMATOLOGY ORD ERABLES [facility] ACCOUNT BILL [address] [place] [address] * (ABNORMAL) BASIC METABOLIC PANEL (CALCIUM TOTAL) (11/24/2019 5:14 AM POWER SCREWDRIVER OPERATOR) Only the most recent of2 resultswithin the time period is included. Glucose 96 70 - 105 mg/dL 11/24/2019 6:06 AM [facility] Sodium 137 136 - 145 mmol/L 11/24/2019 6:06 AM [facility] Potassium 4.2 3.5 - 5.1 mmol/L 11/24/2019 6:06 AM [facility] Chloride 104 98 - 107 mmol/L 11/24/2019 6:06 AM [facility] CO2 22(L) 23 - 31 mmol/L 11/24/2019 6:06 AM [facility] Calcium 8.6 8.4 - 10.4 mg/dL 11/24/2019 6:06 AM [facility] Anion Gap 11 8 - 16 mmol/L 11/24/2019 6:06 AM POWER SCREWDRIVER OPERATOR [facility] BUN 12 9.8 - 20.1 mg/dL 11/24/2019 6:06 AM POWER SCREWDRIVER OPERATOR [facility] Creatinine 0.81 0.57 - 1.11 mg/dL 11/24/2019 6:06 AM POWER SCREWDRIVER OPERATOR [facility] eGFR by MDRD >60 >60 mL/min/1.7 3m2 11/24/2019 6:06 AM POWER SCREWDRIVER OPERATOR [facility] eGFR by MDRD >60 >60 mL/min/1.7 3m2 11/24/2019 6:06 AM POWER SCREWDRIVER OPERATOR [facility] Blood BLOOD SPECIMEN / Unknown Venipuncture / Unknown 11/24/2019 5:14 AM POWER SCREWDRIVER OPERATOR 11/24/2019 5:32 AM POWER SCREWDRIVER OPERATOR Alejandro Hicks MD LAB - CHEMISTRY ORDE JOES Performing Organization Address [facility] Co de Phone Number [facility] [address] [place], [place] [phone] * POTASSIUM BLOOD (11/23/2019 12:36 PM POWER SCREWDRIVER OPERATOR) Potassium 4.7 3.5 - 5.1 mmol/L 11/23/2019 12:57 PM POWER SCREWDRIVER OPERATOR [facility] Blood BLOOD SPECIMEN / Unknown Venipuncture / Unknown 11/23/2019 12:36 PM POWER SCREWDRIVER OPERATOR 11/23/2019 12:45 PM POWER SCREWDRIVER OPERATOR Rosie Miller IMPORT/EXPORT ANALYST-INSURANCE PROCESSOR LAB - RUSSELL EDGARD ORDERABLES Performing Organization Address City/[facility] Co de Phone Number [facility] [address] [place] [address] * FL UGI SERIES (11/23/2019 8:38 AM POWER SCREWDRIVER OPERATOR) Only the most recent of2 resultswithin the time period is included. Anatomical Region Laterality Modality Abdomen Radiographic Debbie ging 11/23/2019 9:22 AM POWER SCREWDRIVER OPERATOR Narrative 11/23/2019 9:36 AM POWER SCREWDRIVER OPERATOR FLUOROSCOPIC UPPER GI WITH KUB Indication: Morbid obesity, gastric surgery. FINDINGS: Total fluoroscopy time 26 seconds. There are changes of gastric bypass which are unremarkable. No leak or obstruction. No hernia. 7 images are recorded. Edited by Luda Marr on 11/23/2019 9:29 AM Reading Radiologist: Mario Birch MD on 11/23/2019 at 9:36 AM Procedure Note Mario Birch MD - 11/23/2019 FLUOROSCOPIC UPPER GI WITH KUB Indication: Morbid obesity, gastric surgery. FINDINGS: Total fluoroscopy time 26 seconds. There are changes of gastric bypass which are unremarkable. No leak or obstruction. No hernia. 7 images are recorded. Edited by Luda Marr on 11/23/2019 9:29 AM Reading Radiologist: Mario Birch MD on 11/23/2019 at 9:36 AM Alejandro Hicks MD FLUOROSCOPY ORDERABL ES * ETT LINE PERFORMABLE (11/22/2019 11:50 AM POWER SCREWDRIVER OPERATOR) Eddie Russo DO - 11/22/2019 11:50 AM POWER SCREWDRIVER OPERATOR Gerda Patel APRN-CRNA 11/22/2019 11:51 AM Endotracheal Tube Placement: Patient Location: OR. Intubation Event Date/Time: 11/22/2019 11:41 AM Procedure: intubation (18763). Procedure Section: Sedation: under general anesthesia. Indications for Airway Management: anesthesia Induction: standard IV Patient Position: supine Mask Ventilation: easy with oral airway. Blade Type: Deepika Blade Size: 4 Laryngoscopy View: grade 2 (partial cords) Intubation Adjuncts: stylet Nasal Airway Size: 7 Tube: other - please comment Placement: oral Tube type: cuff - inflated Tube Size (MM): 7 Depth of Insertion (CM): 21 Measured From: teeth Cuff Inflated With: air Number of Attempts: 1. Placement Verified By: direct visualization, bilateral breath sounds and CO2 monitor Tube secured with: adhesive tape. Difficult Airway? No. Procedure Start Time: 11/22/2019 11:41 AM. Staff Section Anesthesia Provider: Gerda Patel APRN-CRNA, Performed the procedure Eddie Quiroz DO GENERAL ANESTHESIA O RDERABLES * HCG URINE QUALITATIVE (11/22/2019 9:53 AM POWER SCREWDRIVER OPERATOR) hCG Qualitative Urine Negative Negative 11/22/2019 10:08 AM POWER SCREWDRIVER OPERATOR [facility] Urine URINE / Unknown Collection / Unknown 11/22/2019 9:53 AM POWER SCREWDRIVER OPERATOR 11/22/2019 10:03 AM POWER SCREWDRIVER OPERATOR Eddie Quiroz LAB - URINALYSIS ORD ERABLES [facility] [address] [place] [address] * EGD (06/24/2019 8:02 AM CDT) Narrative Alejandro Hicks MD - 06/24/2019 8:02 AM CDT Alejandro Hicks MD 06/24/2019 8:04 AM [facility] Operative Report OPERATIVE REPORT PATIENT:Maral Bernabe MR#: [id number] ADMIT DATE: 06/24/2019 6:35 AM DATE OF SURGERY: 06/24/2019 : 1970 PHYSICIAN: Alejandro Hicks MD 48 yrs Body mass index is 38.79 kg/m . PREOPERATIVE DIAGNOSES: Gastroesophageal reflux disease Morbid Obesity, Body mass index is 38.79 kg/m . Past Medical History: Diagnosis Date Joint pain Sleep apnea POSTOPERATIVE DIAGNOSES: SAME and sleeve anatomy, gastritis, esophagitis, hiatal hernia SURGEON: Alejandro Hicks MD INDUSTRIAL AERIAL INSTALLER: none PROCEDURES PERFORMED: Esophagogastroduodenoscopy ANESTHESIA: MAC PROCEDURE: The patient was brought to the GI suite and placed in standard position. MAC anesthesia was administered. An oral bite block was placed in the patients mouth. The gastroscope was inserted and passed thorugh the bite block into the posterior pharynx and into the esophagus. The gastroscope was further advanced to the level of the GE junction where the z-line was noted at 36 cm from the incissors. The gastroscope was further advanced and passed into the upper aspect of the gastric sleeve. The gastroscope was advanced through the remaining segments of the sleeve without issues. There was a patent pyloric channel and opening. The scope was further advanced into the duodenum. On slow withdrawel evaluation of the duodenum was normal in appearance, without ulcers, masses, bleeding or inflammatory changes. The gastroscope was further withdrawn into the mid segment of the gastric sleeve where the antrum and pylorus appeared inflamed with erythematous streaks. TERESA biopsies were taken. The gastroscope was further withdrawn to the upper gastric sleeve to evaluate the remaining aspect of the sleeve. It appeared intact, the entire staple line was seen and there were no ulcers. The caliber/diameter was 3cm and consistent without evidence of strictures or narrowing at the incisura. At the level of the cardia there was evidence of a small hiatal hernia. The gastroscope was straightened and further withdrawn to the level of the GE junction. The mucosa in the area of the lower esophagus appeared inflamed and with mucosal breaks. This was biopsied and send for pathology. The patient tolerated the procedure well and was taken to recovery room in stable condition. FINDINGS: normal post operative changes, gastritis, esophagitis, hiatal hernia COMPLICATIONS: None. PLAN: - F/U biopsy for TERESA - UGI study pending - f/u after studies completed Alejandro Hicks MD Alejandro Hicks MD GI PROCEDURE ORDERAB LES * HELICOBACTER PYLORI UREASE (STL) (06/24/2019 8:02 AM CDT) Helicobacter pylori Urease Initial Negative Negative 06/25/2019 3:38 PM CDT [facility] Helicobacter pylori Urease Final Negative Negative 06/25/2019 3:38 PM CDT [facility] Comment:This is an appended report. These results have been appended to a previously preliminary verified report. Microbiology GASTRIC ANTRAL BIOPSY SPECIMEN / Unknown 06/24/2019 8:02 AM CDT 06/24/2019 11:17 AM CDT Alejandro Hicks MD LAB - MICROBIOLOGY O RDERABLES [facility] [address] [place] [address] * COMPLETE PFT W/WO BRONCHODILATOR (12/01/2014 12:41 PM POWER SCREWDRIVER OPERATOR) Impressions [facility] - 12/01/2014 12:41 PM POWER SCREWDRIVER OPERATOR [facility] DEPARTMENT OF PULMONARY, CRITICAL CARE, AND SLEEP MEDICINE PULMONARY FUNCTION TESTS Maral Mcgill 12/01/2014 INTERPRETATION SPIROMETRY: Forced vital capacity is decreased. FEV1 is decreased. FEV1/FVC ratio is normal. There is not significant response to bronchodilator. The inspection of the patient's flow-volume loops shows normal configuration of the inspiratory and expiratory limbs. LUNG VOLUMES: Lung volumes by body plethysmography shows reduced TLC. ERV is severely reduced. DLCO: Diffusing capacity unadjusted for Hb and COHb is within normal limits. AIRWAY RESISTANCE: The airway resistance and the specific conductance are normal. IMPRESSION: 1. Mildly restrictive ventilatory limitation with no significant bronchodilator response, this does not preclude use of bronchodilators if clinically warranted. 2. Normal unadjusted DLCO. 3. No comparison study is available. Moise Eli MD Pulmonary/Critical Care Fellow ATTENDING PHYSICIAN ALAN/MARY ALONSO M.D.: I have personally reviewed and interpreted the above test and I have made the necessary changes if needed to the above interpretation. Narrative Procedure Note Provider, MD Dorothy - 03/13/2018 IMPRESSION [facility] DEPARTMENT OF PULMONARY, CRITICAL CARE, AND SLEEP MEDICINE PULMONARY FUNCTION TESTS Maral Mcgill 12/01/2014 INTERPRETATION SPIROMETRY: Forced vital capacity is decreased. FEV1 is decreased. FEV1/FVC ratio is normal. There is not significant response to bronchodilator. The inspection of the patient's flow-volume loops shows normal configuration of the inspiratory and expiratory limbs. LUNG VOLUMES: Lung volumes by body plethysmography shows reduced TLC. ERV is severely reduced. DLCO: Diffusing capacity unadjusted for Hb and COHb is within normal limits. AIRWAY RESISTANCE: The airway resistance and the specific conductance are normal. IMPRESSION: 1. Mildly restrictive ventilatory limitation with no significant bronchodilator response, this does not preclude use of bronchodilators if clinically warranted. 2. Normal unadjusted DLCO. 3. No comparison study is available. Moise Eli MD Pulmonary/Critical Care Fellow ATTENDING PHYSICIAN ALAN/MARY ALONSO M.D.: I have personally reviewed and interpreted the above test and I have made the necessary changes if needed to the above interpretation. Luis A Souza MD RESPIRATORY THERAPY ORDERABLES [facility] * (ABNORMAL) INSULIN LEVEL FASTING (12/01/2014 11:30 AM POWER SCREWDRIVER OPERATOR) Insulin 24.7(H) 2.0 - 19.6 uIU/mL [facility] Comment: This insulin assay shows strong cross-reactivity for some insulin analogs (lispro, aspart, and glargine) and much lower cross-reactivity with others (detemir, glulisine). Test Performed at: [facility] [address] [facility] [place] [address] PETAR COELHO DO,MPH Blood specimen (specimen) BLOOD SPECIMEN / Unknown 12/01/2014 11:30 AM POWER SCREWDRIVER OPERATOR 12/01/2014 11:31 AM POWER SCREWDRIVER OPERATOR Luis A Souza MD LAB - CHEMISTRY MARYAM GARCIA Performing Organization Address [facility] Co de Phone Number [facility] * (ABNORMAL) HEMOGLOBIN A1C (12/01/2014 11:30 AM POWER SCREWDRIVER OPERATOR) Hemoglobin A1c 6.3(H) <5.7 % of total Hgb [facility] Comment: According to ADA guidelines, hemoglobin [...] children. REPORT COMMENT: FASTING:YES Test Performed at: [facility] [address] [place] [address] PETAR COELHO DO,MPH Blood specimen (specimen) BLOOD SPECIMEN / Unknown 12/01/2014 11:30 AM POWER SCREWDRIVER OPERATOR 12/01/2014 11:31 AM POWER SCREWDRIVER OPERATOR Luis A Souza MD LAB - CHEMISTRY MARYAM GARCIA Performing Organization Address [facility]/State/ZIP Co de Phone Number [facility] * D-DIMER (12/01/2014 11:30 AM POWER SCREWDRIVER OPERATOR) D-Dimer Quantitative 0.31 <0.50 mcg/mL FEU [facility] Comment: The D-Dimer test is used frequently to exclude an acute PE or DVT. In patients with a low to moderate clinical risk assessment and a D-Dimer result <0.50 mcg/mL FEU, the likelihood of a PE or DVT is very low. However, a thromboembolic event should not be excluded solely on the basis of the D-Dimer level. Increased levels of D-Dimer are associated with a PE, DVT, DIC, malignancies, inflammation, sepsis, surgery, trauma, , and advancing patient age. [Satish 2006 11:295(2):199-207] For additional information, please refer to: http://education.Cytoguide/faq/OUT422 (This link is being provided for informational/ educational purposes only) Test Performed at: [place] [address] PETAR COELHO DO,MPH Blood specimen (specimen) BLOOD SPECIMEN / Unknown 12/01/2014 11:30 AM POWER SCREWDRIVER OPERATOR 12/01/2014 11:31 AM POWER SCREWDRIVER OPERATOR Luis A Souza MD LAB - COAGULATION OR DERABLES Performing Organization Address [facility] de Phone Number [facility] * B-TYPE NATRIURETIC PEPTIDE (12/01/2014 11:30 AM POWER SCREWDRIVER OPERATOR) Pathologist [facility] BNP <4 <100 pg/mL [facility] Comment: BNP levels increase with age in the general population with the highest values seen in individuals greater than 75 years of age. Reference: J. Am. Milagro. Cardiol. 2002; 40:976-982. Test Performed at: [facility] [address] [facility] [address] PETAR COELHO DO,MPH Blood specimen (specimen) BLOOD SPECIMEN / Unknown 12/01/2014 11:30 AM POWER SCREWDRIVER OPERATOR 12/01/2014 11:31 AM POWER SCREWDRIVER OPERATOR Luis A Souza MD LAB - CHEMISTRY ORDE RABLES Performing Organization Address [facility] Co de Phone Number [facility] * ECHO W DOPPLER AND COLOR FLOW (12/01/2014 12:00 AM POWER SCREWDRIVER OPERATOR) Anatomical Region Laterality Modality Other 12/01/2014 Luis A Souza MD ECHOCARDIOGRAPHY RAD IANT
--- OUTSIDE RECORDS SUMMARY | 2024-12-20 13:40 | XMS_ITS ---
Author Organization [facility] Address [facility] [place] [address] Care Team Providers Care Modeling Agency Manager Name Role Phone Dawson Medel MD Primary Care Provider UnavailLizeth [place] Unavailable [phone] Allergies No Known Allergies REASON [place] VISIT [place], [address], Depression screening negative Medications Medication SIG (Take, Route, Frequency, Duration) [...] No Encounters Encounter Location Date Provider Diagnosis [facility] [address] [facility] [address] [facility] [address] [place] [address] 11/16/2024 Lizeth Carlos Severe episode of recurrent major depressive disorder, without psychotic features F33.2 and JULIAN (generalized anxiety disorder) F41.1 Assessments Encounter Date Diagnosis (ICD Code) Assessment Notes Treatment Notes Treatment Clinical Notes Section Notes 11/16/2024 Severe episode of recurrent major depressive disorder, without psychotic features (ICD-10 - F33.2) SSRI/SNRI side effects discussed including but not limited to, gastric upset, nausea, vomiting, diarrhea and/or constipation, weight changes, sexual side effects including loss of libido, increased suicidal thoughts/behavi ors in children and young adults, and serotonin syndrome. 11/16/2024 JULIAN (generalized anxiety disorder) (ICD-10 - F41.1) 11/16/2024 Other Stable, cont current medciations. Patient [...] effects of psychotropic medications. -Crisis prevention hotline 298. Plan Of Treatment Medication Medication Name Sig Start Date Stop Date Notes Sertraline HCl 50 MG 1 tablet Oral Once a day for 90 days Treatment Notes Assessment Notes Severe episode of recurrent major depressive disorder, without psychotic features SSRI/SNRI side effects discussed includi ng but not limited to, gastric upset, nausea, vomiting, diarrhea and/or constipation, weight changes, sexual side effects including loss of libido, increased suicidal thoughts/behaviors in children and young adults, and serotonin syndrome. Other Stable, cont current medciations. Patient educated on all medications including potential benefits, side effects, risks. Educated on proper dosing schedule and importance of compliance. Next Appt Details Follow Up: 6 Weeks, Reason: medication follow up Provider Name:Lizeth Carlos, 01/13/2025 03:30:00 PM, [address] [facility] [address], [facility] [address], [place], [address], Progress Notes * RHEA BREWEROB:1970 ([age] yo F)Acc No.[id number]:11/16/2024 Patient: BELA JOHN Provider: KULDEEP HUNTHNP :1970 A ge:54 Y S ex:Female Date:11/16/2024 Phone: Address:[address] [place], [place] [address] Pcp:Dawson Medel MD Subjective: * Chief Complaints: * F ollow [id number] screening negative * HPI: D epression Screening: JULIAN-7 (2018 Edition) F eeling nervous, anxious, or on edge N ot at all N ot being able to stop or control worrying?Not at all W orrying too much about different things N ot at all T rouble relaxing N ot at all B eing so restless that it is hard to sit still N ot at all B ecoming easily annoyed or irritable N ot at all F eeling afraid as if something awful might happen N ot at all I f you checked any problems, how difficult have they made it for you to do your work, take care of things at home, or get along with other people? N ot difficult at all [place]-Suicide Severity Rating Scale: Suicide Risk (CSRS-screener) i n the past one month Have you wished you were or wished you could go to sleep and not wake up? N o i n the past one month Have you actually had any thoughts of killing yourself? N o H ave you ever done anything, started to do anything, or prepared to do anything to end your life? N o D epression screening: PHQ-9 L ittle interest or pleasure in doing things?Not at all F eeling down, depressed, or hopeless N ot at all T rouble falling or staying asleep, or sleeping too much S everal days F eeling tired or having little energy S everal days P oor appetite or overeating N ot at all F eeling bad about yourself or that you are a failure, or have let yourself or your family down N ot at all T rouble concentrating on things, such as reading the newspaper or watching television N ot at all M oving or speaking so slowly that other people could have noticed; or the opposite, being so fidgety or restless that you have been moving around a lot more than usual N ot at all T houghts that you would be better off or of hurting yourself in some way N ot at all Intervention D epression Screening Findings N egative S uicide Risk Assessment Performed _ P ast Psychiatric Hospitalizations: Previous psychiatric hospitalizations P revious Psychiatric Hospitalization N o Past History of Suicidal attempt H ave you ever attempted suicide in the past?No Social hx: . No biological children. Has one dog. 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 Legal hx: denies Past psychiatric hx- Hx ECT/TMS/esketamine: none Past [facility] admissions/IOP/PHP: none Previous suicide attempts: denies Previous self-harming: denies Family psychiatric hx: none she is aware of Previous medications: Wellbutrin (ineffective), couple of others she did not recal;, abilify (EPS) Supplements: multivitamin, probiotic Trauma/Abuse: denies Substance use hx: denies Nicotine: none Alcohol: none. H istory of Presenting Problem: Medication Side Effects d enies . Anxiety w ith excessive worry, with low energy-- stable on sertraline . Depression R ates depression 2/10 with 10 being most severe. Denies SI. . Mood lability n o hx tony . Psychosis n o hx psychosis . Sleep disturbance w ith a history of sleep apnea- CPAP . Suicidal ideation d enies . Psychotherapy A lbert. Here for follow up. Citalopram discontinued and sertraline started last apt. Reports I am doing really good; I dont think about it anymore . Motivation and energy is improving. Denies feeling hopeless or helpless, no suyicidal ideation. Anxiety is non-existant , denies recent panic attacks.? Sleep is fair, getting about 8-10 hours nightly. Energy is improving. Appetite is good. * ROS: G eneral / Constitutional: Patient denies c hange in appetite, lightheadedness, sleep disturbance, weight gain, weight loss. P atient complains of l ow energy . ? P sychiatric: Patient denies a uditory / visual hallucinations, delusions, nervous breakdown, suicidal thoughts, tony, psychosis. P atient complains of d epressed mood. C gricel [facility] for details. * Medical History: * Surgical History: g astric sleeve 2016gastric bypass 2018galbladder removal 2018 * Hospitalization/Major Diagno stic Procedure: * Social History: T obacco Use: T obacco Control (Standard) T obacco use: F ormer smoker H ow long has it been since you last smoked??Greater than 10 years D rug/Alcohol: D rugs H ave you used drugs other than those for medical reasons in the past 12 months? N o AUDIT-C (Standard) D id you have a drink containing alcohol in the past year? 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 Safety issues A re there any firearms in the house? N o Advance Care Planning A re you your own decision-maker Y es D o you have Power of Horse Trainer for Health or Medical? Y es D o you have a power of research specialist for health??Yes D o you have power of research specialist for Medical ??Yes I f yes, then please bring the POA paperwork so that we can upload it. N o S ocial History: H oumarii M arital Status: M arried N umber of Adults in household: 2 N umber of Children in Household: 0 L evel of Education: [employer] * Medications: T akingWegovy 0.5 MG/0.5ML Solution Auto-injector 0.5 mL Subcutaneous amLODIPine Besylate 5 MG Tablet Oral Omeprazole 20 MG Capsule Delayed Release Oral Sertraline HCl 50 MG Tablet 1 tablet Oral Once a day Taking Wegovy 0.5 MG/0.5ML Solution Auto-injector 0.5 mL Subcutaneous Taking amLODIPine Besylate 5 MG Tablet Oral Taking Omeprazole 20 MG Capsule Delayed Release Oral Taking Sertraline HCl 50 MG Tablet 1 tablet Oral Once a day Not-TakingLisinopril 5 MG Tablet Oral Medication List reviewed and reconciled with the patientNot-Taking Lisinopril 5 MG Tablet Oral Medication List reviewed and reconciled with the patient * Allergies: N .K.D.A.no[Allergies Verified] Objective: * Vitals: * Examination: P sychiatry: Appearance: w ell-groomed. Abnormal body movements: n one. Affect / mood: a ppropriate. Attention: g ood. Attitude: c ooperative. Homicidal [...] disorder) - F41.1 Plan: * Treatment: 2. O thers Notes: Stable, cont current medciations. Patient educated on all medications including potential benefits, side effects, risks. Educated on proper dosing schedule and importance of compliance. Clinical Notes: -Assessment and treatment plan reviewed with patient. -Compliance with treatment plan importance discussed. -Discussed the risks/benefits of this medication -Discussed medication side effects. -Contact office if symptoms worsen. -Discussed that it can take up to 6-8 weeks to see full therapeutic effects of psychotropic medications. -Crisis prevention hotline 988. * Procedure Codes: 9 6127 BEHAV ASSMT W/SCORE & DOCD/STAND [id number] VISIT COMPLEXITY INHERENT TO ONGOING CARE RELATED TO A PATIENT'S SINGLE, SERIOUS CONDITION OR A COMPLEX [id number] CLIN DEPRESSION SCREEN DOC * Follow Up: 6 Weeks (Reason: medication follow up) * Billing Information: * Visit Code: 65216 OFFICE OUTPATIENT VISIT 15 MINUTES EXPANDED HISTORY AND EXAM/LOW MEDICAL DECISION MAKING. * Procedure Codes: 78083 BEHAV ASSMT W/SCORE & DOCD/STAND INSTRUMENT. G2211 VISIT COMPLEXITY INHERENT TO ONGOING CARE RELATED TO A PATIENT'S SINGLE, SERIOUS CONDITION OR A COMPLEX CONDITION. G8431 CLIN DEPRESSION SCREEN DOC. * OGICAL DRAFTER Sign off status: Completed true * Provider: ANDRE HUNT Date: 0 11/16/2024 Generated for Leila yoder/Lenard/Puraitting on: 0 12/20/2024 01:39 PM CDT History and Physical Notes * HPI (History of Present Illness) Category Sub-Category Detail Notes Category Not es History of Presenting Problem Anxiety with excessive worry, with l ow energy-- stable on sertraline Here for follow up. Citalopram discontinued and sertraline started last apt. Reports I am doing really good; I dont think about it anymore . Motivation and energy is improving. Denies feeling hopeless or helpless, no suyicidal ideation. Anxiety is non-existant , denies recent panic attacks. Sleep is fair, getting about 8-10 hours nightly. Energy is improving. Appetite is good. Depression Rates depression 2/1 0 with 10 being most severe. Denies SI. Suicidal ideation denies Sleep disturbance with a history of sl eep apnea- CPAP Psychosis no hx psychosis Mood lability no hx tony Psychotherapy Juan Alberto Medication Side Effects denies Past Psychiatric Hospitalizations Previous psychiatric hospitalizations Previous Psychiatric Hospitalization: No Social hx: . No biological children. Has one dog. 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 Legal hx: denies Past [...] inte rest or pleasure in doing things: Not at all Feeling down, depressed, or hopeless: No t at all Trouble falling or staying asleep, or sl eeping too much: Several days Feeling tired or having little energy: S everal days Poor appetite or overeating: Not at [...] yourself in some way: Not at all Intervention Depression Screening Findings: N egative Suicide Risk Assessment Performed: ____ Depression Screening JULIAN-7 (2018 Edition) Moisés g nervous, anxious, or on edge: Not [...] awful pranay ht happen: Not at all If you checked any problems, how difficult have they made it for you to do your work, take care of things at home, or get along with other people?: Not difficult at all [place]-Suicide Severity Rating Scale Suicide Risk (CSRS-screener) in [...] tahira ented x 3 Affect / mood: appropriate Speech / language: normal rate, volume, and articulation (RVR), clear and coherent, appropriate pitch/modulation Insight: good Judgement: good Thought process: intact Thought content: appropriate Perceptual disorders: no perceptual diso rder noted Suicidal ideation: none Homicidal ideation: none Delusions: no Hallucinations: no
== END 2024-12-20 11:00 | disposition home or self-care (01) ==
LOC: ANHIMG 11:05
PROVIDERS: PCP Internal Medicine; Visit Provider Obstetrics & Gynecology
DX: R29.890 Loss of height (principal); M85.852 Other specified disorders of bone density and structure, left thigh; M85.851 Other specified disorders of bone density and structure, right thigh
CPT/HCPCS: 77080